=== PATIENT | male | born 1945 | race Caucasian/White ===

== ENCOUNTER → 2018-05-21 | Outpatient (REF) | payer MEDICARE, OTHER ==
[2018-05-21 09:28] LABS: HEMATOCRIT 44.3 % (39.0-50.0); HEMOGLOBIN 14.8 g/dl (14.0-18.0); IMMATURE GRANULOCYTES 0.7 % (0.0-5.0); MEAN CELL VOLUME 102.8 fL CALC (80.0-100.0); MEAN CORPUSCULAR HGB 34.3 pG CALC (26.0-32.0); MEAN CORPUSCULAR HGB CONC 33.4 g/L CALC (32.0-36.0); NEUT# 8.03 thou/uL (1.82-7.42); RED BLOOD COUNT 4.31 mill/uL (4.70-6.10)
[2018-05-21 10:45] LABS: ALBUMIN 3.9 g/dL (3.2-5.0); BILIRUBIN, TOTAL 2.2 mg/dL (0.0-1.4); CHOLESTEROL HDL RATIO 2.3 (<4.4 (CALC)); CREATININE 1.4 mg/dL (0.7-1.3); POTASSIUM 4.6 mmol/l (3.5-5.1)
== END | disposition home or self-care (01) ==
LOC: LAB 08:42
PROVIDERS: ATTEND Internal Medicine Geriatric Medicine
DX: I10 Essential (primary) hypertension (principal); E78.2 Mixed hyperlipidemia

== ENCOUNTER 2018-12-07 15:59 | Observation (INO) | payer MEDICARE, OTHER ==
[~2018-12-07] VITALS: Ht 175.3 cm; Wt 83.2 kg
[2018-12-07 16:51] LABS: HEMATOCRIT 44.7 % (39.0-50.0); HEMOGLOBIN 15.5 g/dl (14.0-18.0); IMMATURE GRANULOCYTES 1.2 % (0.0-5.0); MEAN CELL VOLUME 101.6 fL CALC (80.0-100.0); MEAN CORPUSCULAR HGB 35.2 pG CALC (26.0-32.0); MEAN CORPUSCULAR HGB CONC 34.7 g/L CALC (32.0-36.0); NEUT# 15.03 thou/uL (1.82-7.42); RED BLOOD COUNT 4.4 mill/uL (4.70-6.10); RED CELL DISTRI WIDTH 14.2 % (11.5-15.5)
[2018-12-07 16:58] VITALS: BP 174/78
[2018-12-07 17:07] LABS: CREATININE 1.6 mg/dL (0.7-1.3)
[2018-12-07 19:10] VITALS: BP 123/74
[2018-12-07 22:03] VITALS: BP 106/61
[2018-12-08 00:06] VITALS: BP 98/61
[2018-12-08 03:43] LABS: IMMATURE GRANULOCYTES 0.7 % (0.0-5.0); MEAN CELL VOLUME 101.4 fL CALC (80.0-100.0); MEAN CORPUSCULAR HGB 35.4 pG CALC (26.0-32.0); MEAN CORPUSCULAR HGB CONC 34.9 g/L CALC (32.0-36.0); NEUT# 8.78 thou/uL (1.82-7.42); RED BLOOD COUNT 3.45 mill/uL (4.70-6.10); RED CELL DISTRI WIDTH 14.1 % (11.5-15.5)
[2018-12-08 03:48] LABS: HEMOGLOBIN 12.2 g/dl (14.0-18.0)
[2018-12-08 03:59] LABS: ALKALINE PHOSPHATASE 88 u/l (38-126); ANION GAP 12 (6-22 (CALC)); BUN 11 mg/dL (8-23); BUN/CREATININE RATIO 9 (12-20 (CALC)); CALCULATED LDLCHOLESTEROL 29 mg/dL (62-129 (CALC)); CARBON DIOXIDE 31 mmol/l (22-30); CHLORIDE 94 mmol/l (95-108); CHOLESTEROL HDL RATIO 2.5 (<4.4 (CALC)); CREATININE 1.3 mg/dL (0.7-1.3); GFR 54 ML/MIN (>=60 (CALC)); GFR FOR AFR.AMER. > 60 ML/MIN (>=60 (CALC)); HDL CHOLESTEROL 28 mg/dL (>=40); POTASSIUM 3.7 mmol/l (3.5-5.1); SGOT/AST 14 u/l (19-48); SODIUM 133 mmol/l (137-146); TOTAL PROTEIN 5.9 g/dL (6.3-8.2); TOTAL TRIGLYCERIDES 67 mg/dl (30-149); VLDL CHOLESTROL 13 mg/dl (0-38 (CALC))
[2018-12-08 04:30] VITALS: BP 123/63; BP 23/63
[2018-12-08 04:54] LABS: ALBUMIN 2.8 g/dL (3.2-5.0); TOTAL CHOLESTEROL 70 mg/dl (0-199)
[2018-12-08 07:35] VITALS: BP 149/77
[2018-12-08 11:42] VITALS: BP 139/68
[2018-12-08 13:11] LABS: URINE BILIRUBIN - DIPSTICK NEGATIVE (NEGATIVE); URINE BLOOD DIPSTICK NEGATIVE (NEGATIVE); URINE CLARITY CLEAR; URINE COLOR YELLOW; URINE GLUCOSE - DIPSTICK NEGATIVE (NEGATIVE); URINE KETONE NEGATIVE (NEGATIVE); URINE LEUK ESTERASE NEGATIVE (Negative); URINE NITRITE - DIPSTICK NEGATIVE (Negative); URINE PROTEIN - DIPSTICK NEGATIVE (NEG-TRACE); URINE SPECIFIC GRAVITY <=1.005; URINE UROBILINOGEN - DIPSTICK 0.2 E.U./dL (0.2)
[2018-12-08] MEDS ORDERED: LIPITOR40 M1 PO (13:32)
[2018-12-08] MEDS ORDERED: ASPIRIN ADULT L81 MG PO (13:32)
[2018-12-08] MEDS ORDERED: SPIRONOLACT25 MG PO (13:33)
[2018-12-08] MEDS ORDERED: COREG12.5 MG PO (13:33)
[2018-12-08] MEDS ORDERED: VALSARTAN40 MG PO (13:34)
[2018-12-08 15:09] VITALS: BP 118/68
[2018-12-08 19:26] VITALS: BP 126/64
[2018-12-09 00:34] VITALS: BP 106/65
[2018-12-09 04:41] VITALS: BP 117/70
[2018-12-09 05:18] LABS: HEMATOCRIT 34.9 % (39.0-50.0); HEMOGLOBIN 12.1 g/dl (14.0-18.0); IMMATURE GRANULOCYTES 0.9 % (0.0-5.0); MEAN CELL VOLUME 102.3 fL CALC (80.0-100.0); MEAN CORPUSCULAR HGB 35.5 pG CALC (26.0-32.0); MEAN CORPUSCULAR HGB CONC 34.7 g/L CALC (32.0-36.0); NEUT# 7.57 thou/uL (1.82-7.42); RED BLOOD COUNT 3.41 mill/uL (4.70-6.10); RED CELL DISTRI WIDTH 14.1 % (11.5-15.5)
[2018-12-09 05:38] LABS: ANION GAP 12 (6-22 (CALC)); BUN 11 mg/dL (8-23); BUN/CREATININE RATIO 9 (12-20 (CALC)); CARBON DIOXIDE 29 mmol/l (22-30); CHLORIDE 97 mmol/l (95-108); CREATININE 1.2 mg/dL (0.7-1.3); GFR 59 ML/MIN (>=60 (CALC)); GFR FOR AFR.AMER. > 60 ML/MIN (>=60 (CALC)); POTASSIUM 4.1 mmol/l (3.5-5.1); SODIUM 134 mmol/l (137-146)
[2018-12-09 08:00] VITALS: BP 113/62
[2018-12-09 11:00] VITALS: BP 108/68
[2018-12-09 13:23] VITALS: BP 108/68
== END 2018-12-09 14:14 | disposition home or self-care (01) ==
LOC: MS2 15:59
PROVIDERS: ADMIT Internal Medicine Geriatric Medicine; ATTEND Internal Medicine Geriatric Medicine
DX: R07.89 Other chest pain (principal); R00.0 Tachycardia, unspecified; I11.0 Hypertensive heart disease with heart failure; I50.9 Heart failure, unspecified; I42.0 Dilated cardiomyopathy; J44.9 Chronic obstructive pulmonary disease, unspecified; I25.10 Atherosclerotic heart disease of native coronary artery without angina pectoris; L02.31 Cutaneous abscess of buttock; D53.9 Nutritional anemia, unspecified; F17.200 Nicotine dependence, unspecified, uncomplicated

== ENCOUNTER 2019-10-06 13:51 | Inpatient (IN) | payer MEDICARE, OTHER ==
[~2019-10-06] VITALS: Ht 172.7 cm; Wt 90.0 kg
[~2019-10-06 13:51] MED LIST: ASPIRIN ADULT L81 MG PO; COREG12.5 MG PO; LIPITOR40 M1 PO; SPIRONOLACT25 MG PO; VALSARTAN40 MG PO
--- NOTE | 2019-10-06 14:00 | NUR ---
PT TO ROOM VIA WC, OFFLOADING PRESSURE FROM LT BUTTOCLKS. PT STATES HE TAKES NO HOME MEDS AT THIS TIME.
[2019-10-06 14:56] LABS: GFR 59 ML/MIN (>=60 (CALC)); GFR FOR AFR.AMER. > 60 ML/MIN (>=60 (CALC))
[2019-10-06 14:58] LABS: HEMOGLOBIN 13.9 g/dl (14.0-18.0); IMMATURE GRANULOCYTES 0.5 % (0.0-5.0); MEAN CELL VOLUME 98.6 fL CALC (80.0-100.0); MEAN CORPUSCULAR HGB 32.4 pG CALC (26.0-32.0); MEAN CORPUSCULAR HGB CONC 32.9 g/dL CAL (32.0-36.0); NEUT# 12.98 thou/uL (1.82-7.42); RED BLOOD COUNT 4.29 mill/uL (4.70-6.10); RED CELL DISTRI WIDTH 13.2 % (11.5-15.5)
[2019-10-06 15:04] LABS: HEMATOCRIT 42.3 % (39.0-50.0)
[2019-10-06 15:16] LABS: ALKALINE PHOSPHATASE 94 u/l (38-126); ANION GAP 11 (6-22 (CALC)); BUN 16 mg/dL (8-23); BUN/CREATININE RATIO 15 (12-20 (CALC)); CARBON DIOXIDE 26 mmol/l (22-30); CHLORIDE 100 mmol/l (95-108); CREATININE 1.1 mg/dL (0.7-1.3); GFR > 60 ML/MIN (>=60 (CALC)); GFR FOR AFR.AMER. > 60 ML/MIN (>=60 (CALC)); POTASSIUM 3.5 mmol/l (3.5-5.1); SGOT/AST 15 u/l (19-48); SODIUM 133 mmol/l (137-146)
[2019-10-06 15:19] LABS: ALBUMIN 3.7 g/dL (3.2-5.0); TOTAL PROTEIN 7.5 g/dL (6.3-8.2)
--- NOTE | 2019-10-06 16:25 | NUR ---
PT RESTING SIDE LYING,URINAL GIVEN FOR COMFORT.
--- NOTE | 2019-10-06 17:04 | NUR ---
PLAN OF CARE UPDATED WITH PATIEN. RESPE EVEN,UNLABBORED
--- NOTE | 2019-10-06 18:12 | NUR ---
PT GIVEN DINNER TRAY. PT IN NAD
--- NOTE | 2019-10-06 18:58 | NUR ---
PATIENT RESTING AWAITING ROOM ASSIGNMENT PATIENT DENIES ANY PAIN AT THIS TIME
--- NOTE | 2019-10-06 19:30 | NUR ---
TELEPHONE REPORT RECEIVED Keren RODRIGUEZ RN, ROOM IS READY TO RECEIVE PATIENT.
--- NOTE | 2019-10-06 19:34 | NUR ---
REPORT CALLED TO DAY
--- NOTE | 2019-10-06 19:38 | NUR ---
WENT TO TRANSPORT PATIENT TO MED SURG AND PATIENT STATES TO BE QUITE THATB THERE IS CRABS AND SPIDERS CRAWLING OUT OF THE LINEN CABINET IN THE EXAM ROOM. NO SPIDERS OR CRABS NOTED WHEN LOOKING IN CABINET. DAY NOTIFIED IN MED SURG AND PATIENT REASSIGNED TO ROOM 260 REGISTRATION NOTIFIED AND PATIENT TRANSPORTED TO THE FLOOR
[2019-10-06 19:45] VITALS: BP 152/75
--- NOTE | 2019-10-06 19:48 | NUR ---
PT ARRIVES TO UNIT AT 1945 VIA STRETCHER, ACCOMPANIED BY Keren RODRIGUEZ RN. PT AMBULATORY TO BED. GAIT BALANCED AND STEADY. PT ORIENTED TO ROOM, CALL JC, AND BED/TV/ LIGHT CONTROLS. CALL JC WITHIN REACH. AGREES TO CALL PRN.
--- NOTE | 2019-10-06 20:15 | NUR ---
UPON ENTERING ROOM PT FOUND TO BE RESTING IN BED. LAYING ON HIS RIGHT SIDE. NO APPARENT DISTRESS. RESPIRATIONS ARE REGULAR AND UNLABORED. PHYSICAL ASSESMENT COMPLETE AT THIS TIME. PT REPORTS PAIN IS TOLERABLE IF HE DOES NOT LAY ON HIS BACK OR L GLUTEUS. L GLUTEUS IS ERYTHEMATOUS, EDEMATOUS, AND INDURATED. SKIN APPEARS INTACT AND W/O DRAINAGE AT THIS TIME. PICTURE DOCUMENTATION TAKEN AND POSTED ON CHART. SCHEDULED MED(S) ADMINISTERED, SEE E-MAR. PT DECLINES OFFER OF PRN APAP FOR PAIN, STATES " I DON'T WANT ANYTHING" PLAN OF CARE REVIEWED, PT DENIES QUESTIONS, VERBALIZES UNDERSTANDING. DENIES NEEDS AT THIS TIME. ITEMS WITHIN REACH, BED LOCKED IN LOW POSITION W/ BEDRAILS UP X2. CALL JC WITHIN REACH, AGREES TO CALL PRN.
--- NOTE | 2019-10-06 22:30 | NUR ---
UPON ENTERING ROOM PT APPEARS TO BE SLEEPING. APPEARS COMFORTABLE AND IN NO APPARENT DISTRESS. RESPIRATIONS ARE REGULAR AND UNLABORED. ITEMS REMAIN WITHIN REACH, BED REMAINS LOCKED IN LOW POSITION W/ BEDRAILS UP X2 AND CALL JC REMAINS WITHIN REACH.
[2019-10-06 23:30] VITALS: BP 133/64
[2019-10-07] VITALS (12 sets, daily range): BP systolic 118–155; BP diastolic 67–89
--- NOTE | 2019-10-07 05:57 | NUR ---
PT APPEARS TO BE RESTING COMFORTABLY IN BED. PHYSICAL ASSESMENT UNCHANGED FROM BEGINING OF SHIFT BASELINE. PT AFEBRILE, HEMODYNAMICS STABLE. DENIES NEEDS AT THIS TIME. ITEMS REMAIN WITHIN REACH. BED REMAINS LOCKED IN LOW POSITION W/ BEDRAILS UPX2. CALL JC REMAINS WITHIN REACH, AGREES TO CALL PRN.
--- NOTE | 2019-10-07 07:30 | NUR ---
RECIEVED REPORT FROM JOSE ANTONIO BERNSTEIN. PT RESTING IN SEMI FOWLERS POSITION UPON ENTERING ROOM. RESPIRATIONS ARE EVEN AND UNLABORED WITH NO SIGNS OF DISTRESS. PT DENIES ANY PAIN OR DISCOMFORTS AT THIS TIME. ALL SAFTEY PRECAUTIONS IN PLACE WITH CALL LIGHT IN REACH.WILL CONTINUE TO MONITOR
--- NOTE | 2019-10-07 07:30 | NUR ---
RECIEVED REPORT FROM JOSE ANTONIO BERNSTEIN. PT RESTING IN SEMI FOWLERS POSITION WATCHING TV UPON ENTERING ROOM. INTRODUCED SELF TO PT AND DISCUSSED POC. PT DENIES ANY PAIN OR DSICOMFORTS AT THIS TIME. ALL SAFETY PRECAUTIONS IN PLACE WITH CALL LIGHT IN REACH. WILL CONTINUE TO MONITOR
--- NOTE | 2019-10-07 08:36 | NUR ---
ASSESSMENT AND VITALS COMPLETED AT THIS TIME. PT IS A/O X3 AND ASSIST X1. BP 139/84, HR 100, O2 97% ON ROOM AIR. RESPIRATIONS ARE EVEN AND UNLABORED WITH NO SIGNS OF DISTRESS. LUNG SOUNDS ARE CLEAR. HEART RHYTHM IS NORMAL. BOWEL SOUNDS ARE ACTIVE IN ALL QUADRANTS, LAST REPORTED BM 10/07/19. RADIAL AND PEDAL PULSES ARE STRONG WITH NORMAL CAPILLARY REFILL. SKIN IS WARM AND DRY WITH NO EDEMA. PT PRESENTS WITH LEFT BUTTOCK ABCESS THAT APPEARS TO HAVE BUSTED WHEN GETTING ON BEDPAN. TOWEL APPLIED FOR PRESSURE, SCHEDULED I&D AT 0930.PT EDUCATED ON PROCEDURE, PT VERBALIZED UNDERSTANDING WITH NO QUESTIONS. CONSENT OBTAINED AT THIS TIME.#20G IN LH RUNNING WITH FLUIDS AT 100ML ORDERED, SITE APPEARS HEALTHY AND PATENT. PT DENIES ANY PAIN OR DISCOMFORTS AT THIS TIME. ALL SAFTEY PRECAUTIONS IN PLACE WITH CALL LIGHT IN REACH. WILL CONTINUE TO MONITOR
--- NOTE | 2019-10-07 11:19 | NUR ---
PT TRANSPORTED TO OR FOR I&D VIA STRETCHER IN STABLE CONDITION ACCOMPAINED BY OR STAFF.
--- NOTE | 2019-10-07 11:35 | NUR ---
S: DEDRICK BOLAÑOS is a 74 M who presents with gluteal abscess (cellulitis). He has a history of NE, CAD with stent placement, and hyperlipidemia. All medications in patient's chart were reviewed. O: VS: BP 139/84 mmHg, P 100 bpm, RR 18 BPM, T 98.7 F W 89.981 kg, HT 172.72 cm, SCr=1.2 mg/dL, CrCl= 57 ml/min A: Blood culture is pending. P: Patient is to start on Piperacillin/Tazobactam 3.375 gm IV Q6H. Vancomycin ordered for pharmacy to dose. Start Vancomycin 750 mg IV Q12H. Vancomycin trough is drawn before the 4th dose on 10/07 @ 2030. Vancomycin goal trough is between 10-15 mcg/ml. Pharmacy will follow and or advise on antibiotics use as needed.
--- NOTE | 2019-10-07 14:40 | NUR ---
PT ARRIVED TO [facility] ROOM 260 IN STABLE CONDITION VIA STRETCHER ACCOMPAINED BY OR STAFF. PT APPEARS TO BE A/OX3 BUT DROWSY. VITALS OBTAINED BP 132/74, HR 81, O2 97% ON ROOM AIR. RESPIRATIONS ARE EVEN AND UNLABORED WITH NO SIGNS OF DISTRESS. DRESSING IS SLIGHTLY MOIST, WOUND CARE CONSULTED. WILL REENFORCED DRESSING WHEN PT IS LESS DROWSY. PT DENIES ANY PAINS OR DSICOMFORTS AT THIS TIME. ALL SAFTEY PRECAUTION SIN PLACE WITH CALL LIGHT IN REACH. WILL CONTINUE TO MONITOR
--- NOTE | 2019-10-07 16:30 | NUR ---
PT SLEEPING IN SEMI FOWLERS POSITION WATCHING. RESPIRATIONS ARE EVEN AND UNLABORED WITH NO SIGNS OF DISTRESS. NO SIGNS OF ANY PAINS AT THIS TIME. ALL SAFETY PRECAUTIONS IN PLACE WITH CALL LIGHT IN REACH.
--- NOTE | 2019-10-07 19:00 | NUR ---
REPORT RECEIVED FROM Merly SLOAN LPN, CARE OF PATIENT ASSUMED AT THIS TIME.
--- NOTE | 2019-10-07 21:25 | NUR ---
UPON ENTERING ROOM PT APPEARS TO BE SLEEPING COMFORTABLY.LAYING SUPINE. NO APPARENT DISTRESS. RESPIRATIONS ARE REGULAR AND UNLABORED. WAKE EASILY. PHYSICAL ASSESMENT COMPLETE AT THIS TIME. DRESSING TO LEFT BUTTOCK IS CLEAN, DRY AND INTACT. PT DENIES PAIN. SCHEDULED MED(S) ADMINISTERED, SEE E-MAR. PLAN OF CARE REVIEWED, PT DENIES QUESTIONS, VERBALIZES UNDERSTANDING. DENIES NEEDS AT THIS TIME. ITEMS WITHIN REACH, BED LOCKED IN LOW POSITION W/ BEDRAILS UP X2. CALL JC WITHIN REACH, AGREES TO CALL PRN.
--- NOTE | 2019-10-07 22:00 | NUR ---
PT APPEARS TO BE SLEEPING COMFORTABLY, NO APPARENT DISTRESS. RESPIRATIONS REGULAR AND UNLABORED. PT LAYING SUPINE, HOB ELEVATED 30 DEGREES.
[2019-10-08 03:00] VITALS: BP 125/82
--- NOTE | 2019-10-08 05:52 | NUR ---
PT APPEARS TO BE SLEEPING COMFORTABLY IN BED. NO APPARENT DISTRESS. RESPIRATIONS REGULAR AND UNLABORED.PHYSICAL ASSESMENT UNCHANGED FROM BEGINING OF SHIFT BASELINE. PT AFEBRILE, HEMODYNAMICS STABLE. DENIES NEEDS AT THIS TIME. ITEMS REMAIN WITHIN REACH. BED REMAINS LOCKED IN LOW POSITION W/ BEDRAILS UPX2. CALL JC REMAINS WITHIN REACH, AGREES TO CALL PRN.
--- NOTE | 2019-10-08 08:30 | NUR ---
ASSESSMENT DONE. PT IS A&O X3. IVF INFUSUING WELL. PT STATED PAIN IN BUTTOCKS BUT REFUSED PAIN MEDICATION AT THIS TIME. DRESSING TO BUTTOCK IN PLACE WITH MODERATE RED DRAINAGE NOTED. PT DENIES ANY NEEDS AT THIS TIME. CALL LIGHT IN REACH.
[2019-10-08 09:08] VITALS: BP 138/74
--- NOTE | 2019-10-08 12:00 | NUR ---
PT IS EATING HIS LUNCH WITH NO S/S OF DISTRESS NOTED. PT DENIES PAIN MEDICATION AT THIS TIME. PT DENIES ANY NEEDS AT THIS TIME. CALL LIGHT IN REACH.
--- NOTE | 2019-10-08 13:55 | NUR ---
CHANGE PT DRESSING IN BUTTOCK MODERATE AMOUNT RED DRAINAGE NOTED. PT HAS PAIN BUT REFUSED PAIN MEDICATION AT THIS TIME. CALL LIGHT IN REACH.
--- NOTE | 2019-10-08 15:58 | NUR ---
PT IS RESTING ON HIS RIGHT SIDE WITH NO S/S OF DISTRESS NOTED. PT DENIES NEEDS AT THIS TIME CALL LIGHT IN REACH.
[2019-10-08 16:37] VITALS: BP 123/79
[2019-10-08 18:30] VITALS: BP 130/77
--- NOTE | 2019-10-08 19:00 | NUR ---
REPORT RECEIVED FROM Na SANCHEZ RN, CARE OF PT ASSUMED AT THIS TIME.
--- NOTE | 2019-10-08 21:30 | NUR ---
UPON ENTERING ROOM PT APPEARS TO BE SLEEPING COMFORTABLY. LAYING SUPINE. NO APPARENT DISTRESS. RESPIRATIONS ARE REGULAR AND UNLABORED. WAKE EASILY. PHYSICAL ASSESMENT COMPLETE AT THIS TIME. DRESSING TO LEFT BUTTOCK IS CLEAN, DRY AND INTACT. PT DENIES PAIN. SCHEDULED MED(S) ADMINISTERED, SEE E-MAR. PLAN OF CARE REVIEWED, PT DENIES QUESTIONS, VERBALIZES UNDERSTANDING. DENIES NEEDS AT THIS TIME. ITEMS WITHIN REACH, BED LOCKED IN LOW POSITION W/ BEDRAILS UP X2. CALL JC WITHIN REACH, AGREES TO CALL PRN.
[2019-10-09 04:00] VITALS: BP 148/81
[2019-10-09 04:35] LABS: HEMOGLOBIN 12.8 g/dl (14.0-18.0); MEAN CELL VOLUME 100.8 fL CALC (80.0-100.0); MEAN CORPUSCULAR HGB 33.1 pG CALC (26.0-32.0); MEAN CORPUSCULAR HGB CONC 32.8 g/dL CAL (32.0-36.0); RED BLOOD COUNT 3.87 mill/uL (4.70-6.10); RED CELL DISTRI WIDTH 13.1 % (11.5-15.5)
[2019-10-09 04:41] LABS: ANION GAP 7 (6-22 (CALC)); BUN 23 mg/dL (8-23); BUN/CREATININE RATIO 22 (12-20 (CALC)); CARBON DIOXIDE 26 mmol/l (22-30); CHLORIDE 107 mmol/l (95-108); GFR > 60 ML/MIN (>=60 (CALC)); GFR FOR AFR.AMER. > 60 ML/MIN (>=60 (CALC)); POTASSIUM 3.9 mmol/l (3.5-5.1); SODIUM 137 mmol/l (137-146)
[2019-10-09 07:21] VITALS: BP 147/78
--- NOTE | 2019-10-09 09:20 | NUR ---
ASSESSMENT DONE. PT IS A&O X3 BUT FORGETFUL AT TIMES. PT DENIES PAIN AT THIS TIME.DRESSING IN BUTTOCKS IN PLACE. LUNGS SOUND WHEEZE. PT DENIES ANY NEEDS AT THIS TIME. CALL LIGHT IN REACH.
[2019-10-09 10:49] VITALS: BP 135/76
--- NOTE | 2019-10-09 12:00 | NUR ---
PT IS EATING HIS LUNCH WITH NO S/S OF DISTRESS NOTED. PT DENIES NEEDS AT THIS TIME. CALL LIGHT IN REACH.
[2019-10-09] MEDS ORDERED: DOXYCYCL HYC100 MG PO (12:36)
--- NOTE | 2019-10-09 13:50 | NUR ---
JOSE ANTONIO MALIK CHANGE PT DRESSING IN BUTTOCKS.
--- NOTE | 2019-10-09 15:37 | NUR ---
Discharge instructions given. Patient verbalizes understanding of same. Discharged in stable condition via Wheelchair to Home with staff. All belongings sent with pt.
== END 2019-10-09 15:38 | disposition home health service (06) | DRG 603 ==
LOC: ED 13:51 → ED-I 17:13 → ED 17:39 → ED-I 17:40 → MS2 17:40
PROVIDERS: Family Medicine; ADMIT Internal Medicine; ATTEND Internal Medicine
PROC: 0H98XZZ Drainage of Buttock Skin, External Approach (ICD-10-PCS; principal; 2019-10-07)
DX: L02.31 Cutaneous abscess of buttock (principal); J42 Unspecified chronic bronchitis; R06.03 Acute respiratory distress; I10 Essential (primary) hypertension; I25.10 Atherosclerotic heart disease of native coronary artery without angina pectoris; E78.5 Hyperlipidemia, unspecified; F17.200 Nicotine dependence, unspecified, uncomplicated; I25.2 Old myocardial infarction; Z95.5 Presence of coronary angioplasty implant and graft; Z11.59 Encounter for screening for other viral diseases
CPT/HCPCS: C9290; G0378; J0131; J1650; J3370; Q9967

== ENCOUNTER 2020-02-11 10:19 | Inpatient (IN) | payer MEDICARE, OTHER ==
[~2020-02-11] VITALS: Ht 175.3 cm; Wt 91.3 kg
[~2020-02-11 10:19] MED LIST changes: +DOXYCYCL HYC100 MG PO
--- NOTE | 2020-02-11 10:22 | NUR ---
PATIENT TO ROOM VIA WHEELCHAIR AND PHYSICIAN NOTIFIED OF PATIENT STATUS
--- NOTE | 2020-02-11 11:30 | NUR ---
PATIENT RESTING AWAITING LAB AND RADIOLOGY RESULTS. VOICES NO PAIN AT THIS TIME
[2020-02-11 11:42] LABS: IMMATURE GRANULOCYTES 0.4 % (0.0-5.0); MEAN CORPUSCULAR HGB 30.6 pG CALC (26.0-32.0); MEAN CORPUSCULAR HGB CONC 32.4 g/dL CAL (32.0-36.0); NEUT# 7.31 thou/uL (1.82-7.42); RED BLOOD COUNT 5.33 mill/uL (4.70-6.10); RED CELL DISTRI WIDTH 13.1 % (11.5-15.5)
[2020-02-11 11:47] LABS: HEMATOCRIT 50.3 % (39.0-50.0); HEMOGLOBIN 16.3 g/dl (14.0-18.0); MEAN CELL VOLUME 94.4 fL CALC (80.0-100.0)
[2020-02-11 11:58] LABS: ALBUMIN 4.1 g/dL (3.2-5.0); ALKALINE PHOSPHATASE 109 u/l (38-126); ANION GAP 13 (6-22 (CALC)); BILIRUBIN, TOTAL 2.5 mg/dL (0.0-1.4); BUN 10 mg/dL (8-23); BUN/CREATININE RATIO 9 (12-20 (CALC)); C-REACTIVE PROTEIN 2.3 mg/dL (0-0.9); CARBON DIOXIDE 29 mmol/l (22-30); CHLORIDE 99 mmol/l (95-108); CREATININE 1.2 mg/dL (0.7-1.3); GFR 59 ML/MIN (>=60 (CALC)); GFR FOR AFR.AMER. > 60 ML/MIN (>=60 (CALC)); LIPASE 66 u/l (23-300); POTASSIUM 3.8 mmol/l (3.5-5.1); SGOT/AST 20 u/l (19-48); SODIUM 136 mmol/l (137-146)
[2020-02-11 12:03] LABS: D-DIMER 2.81 mg/L (0.19-0.60)
[2020-02-11 12:08] LABS: INTERNATIONAL NORMALIZED RATIO 1.1 RATIO (0.7-1.3); PROTHROMBIN TIME 10.6 SECONDS (9.0-12.5)
--- NOTE | 2020-02-11 12:30 | NUR ---
PATIENT RESTING AWAITNG LAB AND RADIOLOGY RESULTS. PATIENT VOICES NO PAIN OR CONCERNS AT THIS TIME
--- NOTE | 2020-02-11 13:30 | NUR ---
PATIENT RESTING WITH EYES CLOSED IN NO APPARENT DISTRESS AWAITNG RADIOLOGY RESULTS
--- NOTE | 2020-02-11 14:30 | NUR ---
PATIENT RESTING AWAITNG ROOM ASSIGNMENT
--- NOTE | 2020-02-11 15:19 | NUR ---
REPORT CALLED TO COURTNEY BRADY ON [facility]. PT IS CURRENTLY RESTING OXYGEN SATURATION 95 ON 2L OXYGEN. WILL BE TRANSFERRING THE PATIENT
--- NOTE | 2020-02-11 15:30 | NUR ---
PATIENT TO MED [facility] BY PRIMARY NURSE
[2020-02-11 15:35] VITALS: BP 156/87
--- NOTE | 2020-02-11 15:35 | NUR ---
PT ARRIVED TO [facility] ROOM 268 VIA WHEELCHAIR IN STABLE CONDITION. INTRODUCED SELF TO PT AND DISCUSSED POC. PT IS A/O X3. ASSESSMENT AND VITALS OBTAINED. BP 156/87, HR 94, O2 95% ON 2L NC. RESPIRATIONS ARE EVEN AND UNLABORED. HEART RHYTHM IS NORMAL WITH TELE IN PLACE SR 93 WITH PVCS. BOWEL SOUNDS ARE ACTIVE IN ALL QUADRANTS, LAST REPORTED BM 02/09/20. RADIAL AND PEDAL PULSES STRONG. #20G IN LAC FLUSHED, SITE APPEARS HEALTHY AND PATENT. PT PRESENTS WITH WOUND ON LEFT BUTTOCKS THAT HOME HEALTH DRESSES TWICE A WEEK. PT STATES HE HAD AN ABCESS AND FIORUCCI I&D BACK IN SEPTEMBER. PHOTOS BTO BE OBTAINED.PT INFORMS WRITTER THAT HE HAS INCREASE OF SOB THE PAST COUPLE DAYS. PT DENIES ANY ALLERGIES, ALLERGY BAND APPLIED. PT DENIES ANY PAIN OR DISCOMFORTS AT THIS TIME. PT ORIENTED TO ROOM AND CALL LIGHT SYSTEM. ALL SAFTEY PRECAUTIONS ARE IN PLACE WITH CALL LIGHT IN REACH. WILL CONTINUE TO MONITOR.
[2020-02-11 15:37] VITALS: BP 156/87
--- NOTE | 2020-02-11 17:02 | NUR ---
DR MATOS CALLED TO ENSURE DRESSING COULD BE REMOVED. ORDERS TO REMOVE DRESSING TO DOCUMENT WOUND.
--- NOTE | 2020-02-11 17:58 | NUR ---
PHOTOS OBTAINED OF WOUND ON LEFT BUTTOCKS.PT STATES "I HAVE SOME SILVER STUFF IN THERE TOO, IT HELPS OBSORB." OLD QUUACELL REMOVED. NOTHING PULLED OUT OF WOUND. GUAZE AND TEGADER APPLIED. PT TOLERATED WELL.
--- NOTE | 2020-02-11 18:36 | NUR ---
ORDERS TO OBTAINED PCR FOR COVID 19. PT TO REMAIN IN CURRENT ROOM PER DOCTORS ORDERS.
--- NOTE | 2020-02-11 18:46 | NUR ---
SWABB OBATINED PT TOELRATED WELL
[2020-02-11 19:30] VITALS: BP 143/82
--- NOTE | 2020-02-11 20:02 | NUR ---
PHYSICAL ASSESMENT COMPLETE. PT CURRENTLY DENIES PAIN OR DISCOMFORT. SCHEDULED MEDICATIONS AND PRN MEDICATION ADMINISTERED, SEE E-MAR. PT DENIES ANY NEEDS AT THIS TIME. PLAN OF CARE REVIEWED, PT DENIES QUESTIONS, VERBALIZES UNDERSTANDING. ITEMS WITHIN REACH, BED LOCKED IN LOW POSITION W/ BEDRAILS UP X2. CALL JC WITHIN REACH, AGREES TO CALL PRN.
--- NOTE | 2020-02-12 00:02 | NUR ---
PT LAYING IN BED WITH EYES CLOSED, APPEARS TO BE SLEEPING, APPEARS COMFORTABLE AND IN NO DISTRESS. RESPIRATIONS REGULAR AND UNLABORED. ITEMS REMAIN WITHIN REACH, CALL JC REMAINS WITHIN REACH. BED REMAINS LOCKED AND IN LOW POSITION WITH BEDRAILS UP X2. WILL CONTINUE TO MONITOR.
[2020-02-12 00:05] VITALS: BP 152/96
--- NOTE | 2020-02-12 04:02 | NUR ---
PT RESTING IN BED, NO SIGNS OF DISTRESS NOTED, RESP EVEN AND UNLABORED. PT VOICES NO NEEDS OR COMPLAINTS AT THIS TIME. CALL LIGHT IN REACH, WILL CONTINUE TO MONITOR.
[2020-02-12 04:10] VITALS: BP 122/74
[2020-02-12 04:50] LABS: HEMATOCRIT 45.4 % (39.0-50.0); IMMATURE GRANULOCYTES 0.3 % (0.0-5.0); MEAN CELL VOLUME 94.6 fL CALC (80.0-100.0); MEAN CORPUSCULAR HGB 31.3 pG CALC (26.0-32.0); NEUT# 6.56 thou/uL (1.82-7.42); RED BLOOD COUNT 4.8 mill/uL (4.70-6.10); RED CELL DISTRI WIDTH 12.8 % (11.5-15.5)
[2020-02-12 05:12] LABS: ALBUMIN 3.5 g/dL (3.2-5.0); ALKALINE PHOSPHATASE 85 u/l (38-126); ANION GAP 10 (6-22 (CALC)); BUN 16 mg/dL (8-23); BUN/CREATININE RATIO 15 (12-20 (CALC)); CARBON DIOXIDE 29 mmol/l (22-30); CHLORIDE 103 mmol/l (95-108); CREATININE 1.1 mg/dL (0.7-1.3); GFR > 60 ML/MIN (>=60 (CALC)); GFR FOR AFR.AMER. > 60 ML/MIN (>=60 (CALC)); POTASSIUM 4.5 mmol/l (3.5-5.1); SGOT/AST 16 u/l (19-48); SODIUM 137 mmol/l (137-146)
[2020-02-12 05:14] LABS: BILIRUBIN, TOTAL 1.4 mg/dL (0.0-1.4)
[2020-02-12 07:38] VITALS: BP 134/86
--- NOTE | 2020-02-12 08:00 | NUR ---
RECIEVED REPORT FROM JOSE ANTONIO TSE. PT RESTING IN SEMI FOWLERS POSITION UPON ENTERING ROOM. INTRODUCED SELF TO PT AND DISCUSSED POC. PT IS A/O X3. ASSESSMENT AND VITALS OBTAINED. RESPIRATIONS ARE EVEN AND UNLABORED ON 2L NC. PT DENIES HAVING OXYGEN AT HOME. HEART RHYTHM NORMAL WITH TELE IN PLACE, SR 79. BOWEL SOUNDS ARE ACTIVE IN ALL QUADRANTS, LAST REPORTED BM 02/09/2020. PT REFUSES ANYTHING TO ASSIST. RADIAL AND PEDAL PULSES ARE STRONG WITH NORMAL CAPILLARY REFILL. #20G IN LAC FLUSHED, SITE APPEARS HEALTHY AND PATENT. PT PRESENTS WITH WOUND ON LEFT BUTTOCK, DRESSING CDI AT THSI TIME.NO DRESSING ORDERS AT THSI TIME.PT DENIES OF ANY PAIN OR DISCOMFORTS AT THIS TIME. ALL SAFETY PRECAUTIONS ARE IN PLACE WITH CALL LIGHT IN REACH. WILL CONTINUE TO MONITOR.
--- NOTE | 2020-02-12 10:25 | NUR ---
DR BOWDEN AND JORG EL TINOCO AT BEDSIDE DISCUSSING POC WITH PT
[2020-02-12 12:02] VITALS: BP 123/76
--- NOTE | 2020-02-12 12:40 | NUR ---
PT SLEEPING IN LOW FOWLERS POSITION. RESPIRATIONS ARE EVEN AND UNLABORED ON 2L NC. NO SIGNS OF ANY PAIN OR DISCOMFORTS.TELE MONITORING IN PLACE. ALL SAFETY PRECAUTIONS ARE IN PLACE WITH CALL LIGHT IN REACH. WILL CONTINUE TO MONITOR
[2020-02-12] MEDS ORDERED: ADULT ASPIRIN R81 MG PO (14:56)
[2020-02-12 16:08] VITALS: BP 125/78
--- NOTE | 2020-02-12 16:08 | NUR ---
PT SLEEPING IN SEMI FOWLERS POSITION. RESPIRATIONS ARE EVEN AND UNLABORED ON 2L NC. TELE MONITORING IN PLACE, SR 72. NO SIGNS OF ANY PAIN OR DISCOMFORTS AT THIS TIME.ALL SAFETY PRECAUTIONS ARE IN PLACE WITH CALL LIGHT IN REACH. WILL CONTINUE TO MONITOR
[2020-02-12 19:10] VITALS: BP 131/79
--- NOTE | 2020-02-12 20:30 | NUR ---
PT PRESENTS WITH WOUND ON LEFT BUTTOCK, IRRIGATED WOUND WITH NORMAL SALINE AND REPLACED DRESSING WITH NON-ADHERENT PAD AND TEGADERM COVER. INITIALED AND DATED. DRESSING CDI AT THSI TIME.
[2020-02-13 00:42] VITALS: BP 136/85
[2020-02-13 03:45] VITALS: BP 151/82
--- NOTE | 2020-02-13 04:05 | NUR ---
PT RESTING IN BED, NO SIGNS OF DISTRESS NOTED, RESP EVEN AND UNLABORED. PT VOICES NO NEEDS OR COMPLAINTS AT THIS TIME. CALL LIGHT IN REACH,CONTINUE TO MONITOR.
[2020-02-13 07:43] VITALS: BP 135/86
--- NOTE | 2020-02-13 07:43 | NUR ---
RECIEVED REPORT FROM JOSE ANTONIO TSE. PT RESTNG IN SEMI FOWLERS POSITION UPON ENTERING ROOM. INTRODUCED SELF TO PT AND DISCUSSED POC. PT IS A/O X3. WRITTER ASSISTED PT UP TO CHAIR FOR BREAKFAST. ASSESSMENT AND VITALS COMPLETED. RESPIRATIONS ARE EVEN AND UNLABORED ON ROOM AIR SATING 96%.2L NC AT BEDSIDE PRN. HEART RHYTHM IS NORMAL WITH TELE IN PLACE, SR 77. BOWEL SOUNDS ARE ACTIVE IN ALL QUADRANTS, ALST REPORTED BM 02/09/20. PT REFUSES ANY THING TO HELP ASSIST. #20G IN LAC FLUSHED, SITE APPEARS HEALTHY AND PATENT. RADIAL PULSES STRONG. PEDAL PULSES WEAK. PT DENIES ANY PAIN AT THIS TIME. ALL SAFETY PECAUTIONS ARE IN PLACE WITH CALL LIGHT IN REACH. WILL CONTINUE TO MONITOR
--- NOTE | 2020-02-13 10:31 | NUR ---
DR BOWDEN AT BEDSIDE DISCUSSING POC.
[2020-02-13 11:06] VITALS: BP 123/75
--- NOTE | 2020-02-13 12:46 | NUR ---
PT RESTING IN SEMI FOWLERS POSITION . RESPIRATIONS ARE EVEN AND UNLABORED WITH NO DISTERSS NOTED ON ROOM AIR. PT REQUEST FOR SOMETHING ELSE TO DRINK BESIDE TEA. COLA PROVIDED. PT DENIES ANY PAIN AT THIS TIME. ALL SAFETY PRECAUTIONS ARE IN PLACE WIHT CALL LIGHT INREACH. WILL CONTINUE TO MONITOR
--- NOTE | 2020-02-13 14:36 | NUR ---
ATTEMPTED TO COMPLETE WALK TEST. PT WALKED TO DOOR WITH WRITTER AND PT STATED " IM NOT GOING TO BE ABLE TO MKAE IT." WRITTER ASSISTED PT BACK INTO BED. MD TO BE NOTIFIED.
--- NOTE | 2020-02-13 15:30 | NUR ---
DRESSING CHANGE TO LEFT BUTTOCKS. PT TOELRATED WELL. RESPIRATIONS REMAINS EVEN AND UNLABORED WITH NO SIGNS FO DISTRESS NEED. PT DENIES ANY PAINS OR NEEDS AT THIS TIME. ALL SAFTEY PRECAUTIONS ARE IN PLACE WIHT CALL LIGHT IN REACH. WILL CONTINUE TO MONITOR
[2020-02-13 16:00] VITALS: BP 141/89
[2020-02-13 20:00] VITALS: BP 134/76
--- NOTE | 2020-02-13 20:03 | NUR ---
PHYSICAL ASSESMENT COMPLETE. PT CURRENTLY DENIES PAIN OR DISCOMFORT. SCHEDULED MEDICATIONS AND PRN MEDICATION ADMINISTERED, SEE E-MAR. PT ON 2 LITERS OF 02. PT DENIES ANY NEEDS AT THIS TIME. PLAN OF CARE REVIEWED, PT DENIES QUESTIONS, VERBALIZES UNDERSTANDING. ITEMS WITHIN REACH, BED LOCKED IN LOW POSITION W/ BEDRAILS UP X2. CALL JC WITHIN REACH, AGREES TO CALL PRN.
[2020-02-14] VITALS: BP 139/80
[2020-02-14 04:00] VITALS: BP 144/89
[2020-02-14 05:53] LABS: HEMATOCRIT 44.2 % (39.0-50.0); HEMOGLOBIN 14.3 g/dl (14.0-18.0); IMMATURE GRANULOCYTES 0.5 % (0.0-5.0); MEAN CELL VOLUME 96.5 fL CALC (80.0-100.0); MEAN CORPUSCULAR HGB 31.2 pG CALC (26.0-32.0); MEAN CORPUSCULAR HGB CONC 32.4 g/dL CAL (32.0-36.0); NEUT# 11.75 thou/uL (1.82-7.42); RED BLOOD COUNT 4.58 mill/uL (4.70-6.10); RED CELL DISTRI WIDTH 13.1 % (11.5-15.5)
[2020-02-14 06:14] LABS: ALBUMIN 3.4 g/dL (3.2-5.0); ALKALINE PHOSPHATASE 68 u/l (38-126); ANION GAP 12 (6-22 (CALC)); CARBON DIOXIDE 27 mmol/l (22-30); CHLORIDE 103 mmol/l (95-108); CREATININE 1.1 mg/dL (0.7-1.3); GFR > 60 ML/MIN (>=60 (CALC)); GFR FOR AFR.AMER. > 60 ML/MIN (>=60 (CALC)); POTASSIUM 4.6 mmol/l (3.5-5.1); SGOT/AST 20 u/l (19-48); SODIUM 136 mmol/l (137-146); TOTAL PROTEIN 6.7 g/dL (6.3-8.2)
[2020-02-14 06:24] LABS: BILIRUBIN, TOTAL 0.5 mg/dL (0.0-1.4); BUN 38 mg/dL (8-23); BUN/CREATININE RATIO 35 (12-20 (CALC))
--- NOTE | 2020-02-14 07:09 | NUR ---
PT note Patient is screened for PT intervention and would benefit from consult if medical agrees
[2020-02-14 07:55] VITALS: BP 156/90
--- NOTE | 2020-02-14 07:55 | NUR ---
PATIENT SITTING AT SIDE OF BED. DENIES ANY NEEDS AT THIS TIME CALL LIGHT NEAR. PATIENT O2 ON AT THIS TIME AT 2 LITERS. DRESSING ON BUTTOCKS DRY AND INTACT. ALL SAFETY MEASURES ARE IN PLACE.
--- NOTE | 2020-02-14 08:16 | NUR ---
AT BEDSIDE DISCUSSING POC.
--- NOTE | 2020-02-14 09:01 | NUR ---
CALLED WOUND CARE AND SPOKE TO TOMMY MOSS MADE SURE THE FAX WENT THREW FOR FRIDAY. SHE CONFIRMED THAT SHE RECEIVED THE EMAIL REGARDING THIS PT.
--- NOTE | 2020-02-14 09:56 | NUR ---
WOUND CARE AT BEDSIDE
[2020-02-14] MEDS ORDERED: PREDNISONE10 MG PO (10:46)
[2020-02-14] MEDS ORDERED: Levaquin PO (10:46)
[2020-02-14] MEDS ORDERED: PROAIR HFA IN (10:47)
[2020-02-14] MEDS ORDERED: AMOX/K CLAV875 M1 PO (10:48)
[2020-02-14 10:50] VITALS: BP 134/85
--- NOTE | 2020-02-14 12:25 | NUR ---
PATIENT IN BED DENIES ANY NEEDS AT THIS TIME O2 REMAINS ON AT 2 LITERS. ALL SAFETY MEASURES ARE IN PLACE.
--- NOTE | 2020-02-14 14:20 | NUR ---
PATIENT ASKED IF HE WOULD LIKE TO HAVE SOMETHING TO HELP WITH HIS LACK OF BOWEL MOVEMENT AND PATIENT STATED "NO" PATIENT STATED "I TYPICALLY ON GO EVERY 3-4 DAYS AND I AM NOT UNCOMFORTABLE AT THIS TIME. PATIENT ADVISED TO JUST LET NURSE KNOW IF HE NEEDS ANYTHING.
[2020-02-14 15:10] VITALS: BP 139/81
--- NOTE | 2020-02-14 16:11 | NUR ---
PATIENT IN BED AT THIS TIME CALL LIGHT NEAR 02 ON AT 2 LITERS, DENIES ANY NEEDS AT THIS TIME CALL LIGHT NEAR AND SIDERAILS UPX2.
--- NOTE | 2020-02-14 17:55 | NUR ---
PATIENT D/C AT THIS TIME PATIENT VERBALIZES UNDERSTANDING OF D/C AND WAS GIVEN 3 PRESCRIPTIONS AT THIS TIME.
--- NOTE | 2020-02-14 18:40 | NUR ---
Discharge instructions given. Patient verbalizes understanding of same. Discharged in stable condition via Wheelchair to Home with family. All belongings sent with pt. PT TRANSPORTED TO [facility] IN STABLE CONDITION FOR D/C HOME;ALL BELONGINGS LEFT AT THIS TIME WITH PT INCLUDING HOME OXYGEN, PT INSTRUCTED TO CALL [facility] ONCE HOME AND NUMBER PROVIDED;BROTHER TO TRANSPORT PT HOME.
== END 2020-02-14 18:34 | disposition home health service (06) | DRG 194 ==
LOC: ED 10:19 → ED-I 10:39 → ED 10:39 → ED-I 13:34 → ED 13:53 → MS2 13:54
PROVIDERS: Nurse Practitioner Family; ADMIT Internal Medicine; ATTEND Internal Medicine
DX: J18.9 Pneumonia, unspecified organism (principal); J44.1 Chronic obstructive pulmonary disease with (acute) exacerbation; J91.8 Pleural effusion in other conditions classified elsewhere; L02.31 Cutaneous abscess of buttock; I25.10 Atherosclerotic heart disease of native coronary artery without angina pectoris; I10 Essential (primary) hypertension; E78.5 Hyperlipidemia, unspecified; F17.210 Nicotine dependence, cigarettes, uncomplicated; Z79.899 Other long term (current) drug therapy; Z95.5 Presence of coronary angioplasty implant and graft; I25.2 Old myocardial infarction
CPT/HCPCS: J1650; Q9967

== ENCOUNTER 2021-10-08 13:45 | Emergency (ER) | payer MEDICARE, OTHER ==
[~2021-10-08] VITALS: Ht 174 cm; Wt 84.0 kg
[~2021-10-08 13:45] MED LIST changes: +ADULT ASPIRIN R81 MG PO; +AMOX/K CLAV875 M1 PO; +ATORVASTATIN CA40 MG PO; +COREG6.25 MG PO; +LASIX20 MG PO; +Levaquin PO; +PREDNISONE10 MG PO; +PROAIR HFA IN
[2021-10-08 14:35] LABS: HEMATOCRIT 40.4 % (39.0-50.0); HEMOGLOBIN 13.4 g/dl (14.0-18.0); IMMATURE GRANULOCYTES 0.2 % (0.0-5.0); MEAN CELL VOLUME 95.5 fL CALC (80.0-100.0); MEAN CORPUSCULAR HGB 31.7 pG CALC (26.0-32.0); MEAN CORPUSCULAR HGB CONC 33.2 g/dL CAL (32.0-36.0); NEUT# 6.7 thou/uL (1.82-7.42); RED BLOOD COUNT 4.23 mill/uL (4.70-6.10); RED CELL DISTRI WIDTH 13.4 % (11.5-15.5)
[2021-10-08 14:55] LABS: ALBUMIN 3.2 g/dL (3.2-5.0); CREATININE 1.6 mg/dL (0.7-1.3); TOTAL PROTEIN 6.3 g/dL (6.3-8.2)
[2021-10-08 14:57] LABS: BILIRUBIN, TOTAL 0.9 mg/dL (0.0-1.4)
[2021-10-08 17:30] LABS: URINE BLOOD DIPSTICK NEGATIVE (NEGATIVE); URINE COLOR YELLOW; URINE GLUCOSE - DIPSTICK NEGATIVE (NEGATIVE); URINE KETONE TRACE mg/dL (NEGATIVE); URINE LEUK ESTERASE NEGATIVE (NEGATIVE); URINE PROTEIN - DIPSTICK TRACE mg/dL (NEG-TRACE); URINE SPECIFIC GRAVITY 1.025; URINE UROBILINOGEN - DIPSTICK 0.2 E.U./dL (0.2)
[2021-10-08 17:33] LABS: URINE BILIRUBIN - DIPSTICK SMALL (NEGATIVE); URINE NITRITE - DIPSTICK NEGATIVE (Negative)
[2021-10-08 18:30] VITALS: BP 123/68
== END 2021-10-08 19:01 | disposition home or self-care (01) ==
LOC: ED 13:45
PROVIDERS: Nurse Practitioner
DX: Z04.89 Encounter for examination and observation for other specified reasons (principal); F17.200 Nicotine dependence, unspecified, uncomplicated; Z95.5 Presence of coronary angioplasty implant and graft; Z63.4 Disappearance and death of family member; Z60.2 Problems related to living alone

== ENCOUNTER 2022-09-09 22:21 | Inpatient (IN) | payer MEDICARE ==
[~2022-09-09] VITALS: Ht 175.3 cm; Wt 79.0 kg
[2022-09-09 22:45] VITALS: BP 134/64
--- NOTE | 2022-09-09 22:45 | NUR ---
PT ARRIVES VIA EMS STRETCHER WITH C/O SHORTNESS OF BREATH. PT REPORTS DIARRHEA AND SHORTNESS OF BREATH THAT STARTED TODAY. PT APPEARS PALE IN COLOR, 02 AT 2L VIA NC. EMS REPORTS THAT UPON ARRIVAL, PT WAS FOUND SITTING ON THE TOILET, WITH BROWN DIARRHEA NOTED IN THE BOWL. PT GIVEN NEB TX X 1 AND DECADRON 10MG IVP PRIOR TO ARRIVAL. MD IMMEDIATELY AT BEDSIDE TO EVALUATE PT.
--- NOTE | 2022-09-09 22:47 | NUR ---
RT AT BEDSIDE FOR ABG
[2022-09-09 23:15] VITALS: BP 141/63
[2022-09-09 23:17] LABS: BASO% 0.1 % (0-3); EOS% 0.5 % (0-8); HEMATOCRIT 35.2 % (39.0-50.0); HEMOGLOBIN 11.8 g/dl (14.0-18.0); IMMATURE GRANULOCYTES 0.5 % (0.0-5.0); LYMPH% 10.3 % (15-41); MEAN CELL VOLUME 92.9 fL CALC (80.0-100.0); MEAN CORPUSCULAR HGB 31.1 pG CALC (26.0-32.0); MEAN CORPUSCULAR HGB CONC 33.5 g/dL CAL (32.0-36.0); MONO% 4.1 % (2-13); NEUT# 6.72 thou/uL (1.82-7.42); NEUT% 84.5 % (42-76); RED BLOOD COUNT 3.79 mill/uL (4.70-6.10); RED CELL DISTRI WIDTH 13.2 % (11.5-15.5)
[2022-09-09 23:30] VITALS: BP 152/62
[2022-09-09 23:35] LABS: ALKALINE PHOSPHATASE 119 u/l (38-126); CHLORIDE 106 mmol/l (95-108); CREATININE 1.7 mg/dL (0.7-1.3); GFR FOR AFR.AMER. 47 ML/MIN (>=60 (CALC)); GFR OTHER RACES 39 ML/MIN (>=60 (CALC)); SGOT/AST 27 u/l (19-48); SODIUM 136 mmol/l (137-146); TOTAL PROTEIN 6.5 g/dL (6.3-8.2)
--- NOTE | 2022-09-09 23:41 | NUR ---
PT RESTING QUIETLY IN BED, MONITOR SHOWS A PACED RHYTHM, NO COUGHING NOTED AT THIS TIME. 02 99% ON 2L VIA NC
[2022-09-09 23:43] LABS: ANION GAP 16 (6-22 (CALC)); BILIRUBIN, TOTAL 3.5 mg/dL (0.2-1.3); BUN 53 mg/dL (8-23); BUN/CREATININE RATIO 31 (12-20 (CALC)); CARBON DIOXIDE 17 mmol/l (22-30); POTASSIUM 2.9 mmol/l (3.5-5.1)
[2022-09-09 23:45] VITALS: BP 131/67
[2022-09-10] VITALS (16 sets, daily range): BP systolic 135–178; BP diastolic 62–85
--- NOTE | 2022-09-10 02:40 | NUR ---
PATIENT ARRIVED TO [facility] ROOM 271. PATIENT IS ON OXYGEN 2L NC WITH LABORED BREATHING AND COMPLAINING OF DISCOMFORT TO HIS BUTTOCKS. 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 PATIENT ALSO HAS MULTIPLE SCATTERED BRUISES AND A RIGHT KNEE ABRASION, PHOTOS TAKEN. PATIENT IS ALERT TO SELF AND PLACE BUT NOT ANYTHING ELSE. WHEN ASKED WHERE HE LIVES HE STATED "[facility] [place] [facility] [place] [employer] [facility] [place] PATIENT STATED SMOKING AT LEAST 2 PACKS A DAY WITH OXYGEN USAGE AT THE SAME TIME RANGING FROM 2-4L NC. PATIENT EDUCATED ON DANAGER OF USING OXYGEN WHILE SMOKING. ONLY BELONGING IN ROOM ARE CLOTHING.
--- NOTE | 2022-09-10 06:12 | NUR ---
PATIENT RESTING ABLE TO SELF TURN. PATIENT IS MORE ALERT BUT FORGETFUL. CALL LIGHT WITHIN REACH.
--- NOTE | 2022-09-10 19:46 | NUR ---
BEDSIDE REPORT RECEIVED FROM OFF GOING NURSE. PATIENT ASLEEP IN BED. RESPIRATIONS EVEN AND UNLABORED ON OXYGEN VIA NASAL CANNULA. CALL LIGHT WITHIN REACH.
--- NOTE | 2022-09-10 23:13 | NUR ---
PATIENT AWAKE IN BED AT THIS TIME RECEIVING NEBULIZER TREATMENT. DENIES PAIN OR DISCOMFORT. CALL LIGHT WITHIN REACH.
--- NOTE | 2022-09-11 02:07 | NUR ---
PATIENT ASLEEP IN BED. RESPIRATIONS EVEN AND UNLABORED ON ROOM AIR. IN NO APPARENT DISTRESS.
[2022-09-11 04:50] VITALS: BP 142/60
--- NOTE | 2022-09-11 04:55 | NUR ---
PATIENT AWAKE IN BED. DENIES PAIN OR DISCOMFORT. CALL LIGHT WITHIN REACH.
[2022-09-11 05:13] LABS: BASO% 0.1 % (0-3); HEMATOCRIT 32.9 % (39.0-50.0); HEMOGLOBIN 11.2 g/dl (14.0-18.0); IMMATURE GRANULOCYTES 0.3 % (0.0-5.0); LYMPH% 7.8 % (15-41); MEAN CELL VOLUME 92.2 fL CALC (80.0-100.0); MEAN CORPUSCULAR HGB 31.4 pG CALC (26.0-32.0); MONO% 1.2 % (2-13); NEUT# 6.61 thou/uL (1.82-7.42); NEUT% 90.6 % (42-76); RED BLOOD COUNT 3.57 mill/uL (4.70-6.10); RED CELL DISTRI WIDTH 13.5 % (11.5-15.5)
[2022-09-11 05:32] LABS: BILIRUBIN, TOTAL 2.1 mg/dL (0.2-1.3); CREATININE 1.6 mg/dL (0.7-1.3); MAGNESIUM 1.1 mg/dL (1.6-2.3); POTASSIUM 3.5 mmol/l (3.5-5.1); TOTAL PROTEIN 6.3 g/dL (6.3-8.2)
[2022-09-11 06:39] VITALS: BP 135/70
--- NOTE | 2022-09-11 06:41 | NUR ---
PATIENT ASLEEP IN BED. RESPIRATIONS EVEN AND UNLABORED ON ROOM AIR. NO CONCERNS VOICED AT THIS TIME.
--- NOTE | 2022-09-11 07:00 | NUR ---
BEDSIDE REPORT RECEIVED FROM OFF GOING NURSE. PATIENT AWAKE AND RESTING IN BED. NO CONCERNS VOICED AT THIS TIME. CALL LIGHT WITHIN REACH. ALL SAFETY MEASURES IN PLACE. VSS
--- NOTE | 2022-09-11 10:27 | NUR ---
PT REMOVED HIS IV CATHETER. SAYS RN CAN PUT A NEW ONE IN "LATER". PT EDUCATED BUT ADAMANT. RN WILL REATTEMPT SHORTLY.
[2022-09-11 12:00] VITALS: BP 135/57
[2022-09-11 16:34] VITALS: BP 144/65
[2022-09-11 19:17] VITALS: BP 143/71
--- NOTE | 2022-09-11 23:23 | NUR ---
PATIENT'S SISTER SHAWNA CALLED EARLY IN SHIFT TO RECEIVE UPDATE ON PATIENT. THIS ANCILLARY SERVICES MANAGER THERAPY UNABLE TO SPEAK WITH SISTER AT LENGTH AT THAT TIME AND AGREED TO RETURN THE CALL. PATIENT MADE AWARE OF HIS SISTER'S PHONE CALL AND AGREEABLE THAT SHE IS ALLOWED TO RECEIVE INFORMATION ON THIS PATIENT. UPON RETURN CALL TO PATIENT'S SISTER, THERE WAS NO ANNSWER. MESSAGE LEFT. PATIENT MADE AWARE.
[2022-09-12] VITALS (9 sets, daily range): BP systolic 109–149; BP diastolic 64–83
--- NOTE | 2022-09-12 04:57 | NUR ---
PATIENT AWAKE IN BED. DENIES PAIN OR DISCOMFORT. RESPIRATIONS SHALLOW AT TIMES. PATIENT EDUCATED ON BREATHING TECHNIQUES AND ABLE TO RETURN DEMONSTRATION. CALL LIGHT DESHAWN TERRY.
[2022-09-12 05:48] LABS: HEMATOCRIT 31.1 % (39.0-50.0); HEMOGLOBIN 10.4 g/dl (14.0-18.0); IMMATURE GRANULOCYTES 0.4 % (0.0-5.0); MEAN CELL VOLUME 91.2 fL CALC (80.0-100.0); MEAN CORPUSCULAR HGB 30.5 pG CALC (26.0-32.0); MEAN CORPUSCULAR HGB CONC 33.4 g/dL CAL (32.0-36.0); MONO% 3.6 % (2-13); NEUT# 6.64 thou/uL (1.82-7.42); RED BLOOD COUNT 3.41 mill/uL (4.70-6.10); RED CELL DISTRI WIDTH 13.4 % (11.5-15.5)
[2022-09-12 06:05] LABS: ALBUMIN 2.7 g/dL (3.2-5.0); ALKALINE PHOSPHATASE 96 u/l (38-126); ANION GAP 13 (6-22 (CALC)); BILIRUBIN, TOTAL 2.2 mg/dL (0.2-1.3); BUN 47 mg/dL (8-23); BUN/CREATININE RATIO 39 (12-20 (CALC)); CARBON DIOXIDE 17 mmol/l (22-30); CHLORIDE 108 mmol/l (95-108); CREATININE 1.2 mg/dL (0.7-1.3); GFR FOR AFR.AMER. > 60 ML/MIN (>=60 (CALC)); GFR OTHER RACES 58 ML/MIN (>=60 (CALC)); MAGNESIUM 1.2 mg/dL (1.6-2.3); POTASSIUM 3.2 mmol/l (3.5-5.1); SGOT/AST 22 u/l (19-48); SODIUM 136 mmol/l (137-146); TOTAL PROTEIN 5.6 g/dL (6.3-8.2)
[2022-09-12 06:18] LABS: URINE BILIRUBIN - DIPSTICK NEGATIVE (NEGATIVE); URINE BLOOD DIPSTICK SMALL (NEGATIVE); URINE COLOR YELLOW; URINE GLUCOSE - DIPSTICK NEGATIVE (NEGATIVE); URINE KETONE NEGATIVE (NEGATIVE); URINE LEUK ESTERASE NEGATIVE (NEGATIVE); URINE PH 5.5 (4.5-8.0); URINE PROTEIN - DIPSTICK TRACE mg/dL (NEG-TRACE); URINE SPECIFIC GRAVITY 1.025; URINE UROBILINOGEN - DIPSTICK 0.2 E.U./dL (0.2)
[2022-09-12 06:26] LABS: URINE NITRITE - DIPSTICK NEGATIVE (Negative)
[2022-09-12 06:38] LABS: URINE WBC 0-2 WBC/hpf (0-5)
--- NOTE | 2022-09-12 07:11 | NUR ---
PT RESTINGIN LOWSEMI FOWLERS POSITION. A/O PT HEART RHYTHM ON TELE PACED. RESPIATIONS ON 2LNC PT CURRENTLY OFF PT TAKES O2 OFF. PT IV SITE NOTED FLUIDS INFUSING. PTDENIES ADDITIONAL NEEDS AT THE TIMEALL SAFETYPRECAUTIONS IN PLACE.
--- NOTE | 2022-09-12 12:22 | NUR ---
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 TO BE INSERTED AFTER LUNCH PT CURRENTLY EATING.
--- NOTE | 2022-09-12 13:36 | NUR ---
PT OUTPUT 100 CC OF URINE. ORDER FOR CHAIREZ CATH NOTED. PT EDUCATED NEED OF CHAIREZ CATH PT STATED UNDERSTANDING.INSERTION ON 16F CATH . PT TOLERATED WELL. URINE OUT PUT TO BE DOCUMETED. URINE DARK CHUY.
--- NOTE | 2022-09-12 15:41 | NUR ---
PT RESTING IN LOWFOWLERS POSITION PT TAKES OXYGEN ON AND OFF PT AWARE HAS INHALER IF NEEDED. FOR SOB. PT DENIES ADDITIONAL NEEDS AT THE TIME .
--- NOTE | 2022-09-12 21:29 | NUR ---
received bedside report at start of shift. pt alert, in bed with hob elevated. on 02 via nasal cannula. joiner cath draining dk patel urine. iv fluids infusing rt forearm. top side rails up. bed is locked and alarm in engaged. call light is in reach.
[2022-09-13] VITALS (12 sets, daily range): BP systolic 109–142; BP diastolic 49–78
--- NOTE | 2022-09-13 02:05 | NUR ---
pt continues to pull at joiner catheter, take 02 off, trying to climb over bedrails. unable to redirect. pt became agitated. zyprexa given IM as ordered for agitation.
--- NOTE | 2022-09-13 04:31 | NUR ---
PTS CHAIREZ DRAINED 300 CC CHUY COLORED INTAKE 1850 IV FLUIDS AND PO.
[2022-09-13 06:01] LABS: BASO% 0.1 % (0-3); HEMATOCRIT 38.6 % (39.0-50.0); HEMOGLOBIN 11.8 g/dl (14.0-18.0); IMMATURE GRANULOCYTES 0.3 % (0.0-5.0); LYMPH% 8.3 % (15-41); MEAN CORPUSCULAR HGB 30.9 pG CALC (26.0-32.0); MEAN CORPUSCULAR HGB CONC 30.6 g/dL CAL (32.0-36.0); MONO% 2.9 % (2-13); NEUT# 6.75 thou/uL (1.82-7.42); NEUT% 88.4 % (42-76); RED BLOOD COUNT 3.82 mill/uL (4.70-6.10); RED CELL DISTRI WIDTH 13.5 % (11.5-15.5)
[2022-09-13 06:41] LABS: ALBUMIN 2.6 g/dL (3.2-5.0); ALKALINE PHOSPHATASE 88 u/l (38-126); BUN 51 mg/dL (8-23); BUN/CREATININE RATIO 45 (12-20 (CALC)); CARBON DIOXIDE 16 mmol/l (22-30); CHLORIDE 111 mmol/l (95-108); CREATININE 1.1 mg/dL (0.7-1.3); GFR FOR AFR.AMER. > 60 ML/MIN (>=60 (CALC)); GFR OTHER RACES > 60 ML/MIN (>=60 (CALC)); SGOT/AST 24 u/l (19-48); SODIUM 137 mmol/l (137-146); TOTAL PROTEIN 5.4 g/dL (6.3-8.2)
[2022-09-13 06:43] LABS: ANION GAP 14 (6-22 (CALC)); MAGNESIUM 2.3 mg/dL (1.6-2.3); POTASSIUM 3.9 mmol/l (3.5-5.1)
--- NOTE | 2022-09-13 07:30 | NUR ---
RECIEVED BEDSIDE REPORT, WHITEBOARD UPDATED,PATIENT IN BED RESTING, IV INTACT , URINE IS DARK YELLOW, PATIENT SAFETY PRECAUTINS IN PLACE, NO S/S OF DISTRESS.
--- NOTE | 2022-09-13 07:45 | NUR ---
pt yelled out and told staff he wanted into the chair. pt very confused this am. declined in function as far as mentation. property underwriter helped get everything ready to get pt into chair. pt sat on opposite side of bed. after reorienting pt property underwriter got pt on other side of bed to place in chair. pt weight this am. pt doesnt really stand that much today. worse than yesterday. pt kept telling property underwriter he wasnt awake yet. property underwriter agreed but pt still insisted on getting into the chair. pt max assist to chair. pt in chair at this time with breakfast on table in front of him. pt was oriented to the tray. property underwriter cut up food for pt so he could eat. pt tv was turned on so he could watch it while he eats. pt used it as a phone to talk to someone by putting up to his ear. pt joiner still in place draining. pt tried to pull it out while standing up along with his iv. pt was told to leave the iv and joiner alone. pt hasnt touch it since. pt ate 75 percent of meal today after it getting cut up for him.
--- NOTE | 2022-09-13 12:00 | NUR ---
PATIENT IN CHAIR APPEARS SLEEPING, NO S/S OF DISTRESS, PATIENT MOVED TO BED. CATH DRAINING CHUY COLORED URINE, PATIENT SAFETY MEASURES IN PLACE.
--- NOTE | 2022-09-13 17:37 | NUR ---
PRIMARY NURSE NOTES PT CONTINUES TO SLEEP, REPORTS "HE'S BEEN ASLEEP ALL DAY". REQUESTS SECONDARY ASSESMENT OF PT/ ON EXAM PT IS SOMNOLENT BUT IS ROUSABLE WITH LIGHT PHYSICAL STIMULATION. VSS. PT SITTING UP HIGH FOWLERS, MAINTAINS AIRWAY INDEPENDENTLY. DR. BOWDEN MADE AWARE.ABG ORDERED. REPORTEDLY PT HAS BEEN SOMNOLENT SINCE RECEIVING ZYPREXA THE NIGHT BEFORE FOR AGITATION. SPOKE WITH PRIMARY NURSE Merly BERTRAND AND DORIAN MACE REGARDING CHANGES TO PLAN OF CARE, AND ASPIRATION PRECAUTIONS ARE IN PLACE WITH SUCTION AT BEDSIDE, PO INTAKE ON HOLD UNTIL PT BECOMES MORE ALERT.
--- NOTE | 2022-09-13 17:37 | NUR ---
patient is somnolent, house and floorworker distributor aware, floorworker distributor notified provider, vitals stable does rouse with sternal rub. patient safety precautions in place.
--- NOTE | 2022-09-13 20:03 | NUR ---
RECEIVED BEDSIDE REPORT AT START OF SHIFT. PT IS SLEEPING. OPENS EYES TO TOUCH. ON TELE PACED HR 60. CHAIREZ CATH PATENT DRAINING CHUY COLORED URINE. ON NASAL 02 AT 2 LITERS. TOP BED RAILS UP. BED IS LOCKED AND ALARMED. CALL LIGHT IN REACH.
--- NOTE | 2022-09-13 23:00 | NUR ---
PT TURNED AND REPOSITIONED IN HIGH FOWLERS TO PROMOTE CLEARING HIS THROAT CONGESTION. PT WAS ABLE TO COUGH UP SPUTUM AND CLEAR HIS AIRWAY/THROAT. AWAKE AT PRESENT. TOOK PO MEDS WITH SIPS OF WATER. 02 SAT 96% ON 2 LITERS VIA NC. BP 136/61-HR 80-RR 16
[2022-09-14] VITALS (9 sets, daily range): BP systolic 126–144; BP diastolic 55–78
[2022-09-14 05:04] LABS: IMMATURE GRANULOCYTES 0.5 % (0.0-5.0); LYMPH% 5.9 % (15-41); MEAN CORPUSCULAR HGB CONC 33.1 g/dL CAL (32.0-36.0); MONO% 2.2 % (2-13); NEUT# 5.76 thou/uL (1.82-7.42); NEUT% 91.4 % (42-76); RED BLOOD COUNT 3.1 mill/uL (4.70-6.10); RED CELL DISTRI WIDTH 13.5 % (11.5-15.5)
[2022-09-14 05:10] LABS: HEMOGLOBIN 9.6 g/dl (14.0-18.0); MEAN CELL VOLUME 93.5 fL CALC (80.0-100.0)
--- NOTE | 2022-09-14 05:24 | NUR ---
BED BATH GIVEN THIS AM. PROTECTIVE FOAM DSG CHANGED TO COCCYX/BUTTOCKS. WOUND ON LEFT BUTTOCK CLEANSED AND DRIED. CHAIREZ CATH DRAINED 400 CC CHUY COLRED URINE. IV FLUIDS KVO. IV MEDS TOTAL RECEIVED 300 CC. PT AWAKE THIS AM. TURNED AND REPOSITIONED. SIDE RAILS UP BED LOCKED AND ALARMED FOR SAFETY. ON TELE PACED RYTHM 65
[2022-09-14 05:41] LABS: ALBUMIN 2.6 g/dL (3.2-5.0); ALKALINE PHOSPHATASE 78 u/l (38-126); BILIRUBIN, TOTAL 1.2 mg/dL (0.2-1.3); BUN 53 mg/dL (8-23); BUN/CREATININE RATIO 41 (12-20 (CALC)); CHLORIDE 112 mmol/l (95-108); CREATININE 1.3 mg/dL (0.7-1.3); GFR FOR AFR.AMER. > 60 ML/MIN (>=60 (CALC)); GFR OTHER RACES 53 ML/MIN (>=60 (CALC)); MAGNESIUM 2.2 mg/dL (1.6-2.3); SGOT/AST 21 u/l (19-48); SODIUM 140 mmol/l (137-146); TOTAL PROTEIN 5.4 g/dL (6.3-8.2)
[2022-09-14 05:43] LABS: ANION GAP 11 (6-22 (CALC))
[2022-09-14 05:49] LABS: CARBON DIOXIDE 21 mmol/l (22-30)
--- NOTE | 2022-09-14 07:15 | NUR ---
REPORT RECEIVED FROM SANJIVRN
--- NOTE | 2022-09-14 08:40 | NUR ---
PT RESTING IN SEMI FOWLERS POSITION, OPENS EYES TO TOUCH HOWEVER FALLS BACK TO SLEEP QUICKLY;ASSESSMENT COMPLETED;RESPIRATIONS SHALLOW ON O2 @ 2L VIA NC,COARSE/CRACKLE LUNG SOUNDS NOTED;ABDOMEN SOFT ON PALPATION AND ACTIVE IN ALL 4 QUADRANTS;WEAK PEDAL PULSES;PRESSURE ULCER NOTED TO DANETTE BUTTOCKS WITH AQUACEL DRESSING IN PLACE;CHAIREZ CATHETER PATENT,DRAINING TO GRAVOTY WITH EASE;#20G TO RW INFUSING NS @ KVO, SITE APPEARS HEALTHY;TELE MONTITORING IN PLACE;ALL SAFETY PRECAUTIONS NOTED WITH BED IN THE LOWEST POSITION AND BED ALARM NOTED;CALL LIGHT IN REACH;FREQUENT ROUNDS MADE.
--- NOTE | 2022-09-14 09:09 | NUR ---
AT BEDSIDE DISCUSSING POC.
--- NOTE | 2022-09-14 10:10 | NUR ---
NICOTINE PATCH REMOVED FROM LEFT SHOULDER AND NEW ONE APPLIED TO RIGHT SIDE.
--- NOTE | 2022-09-14 12:40 | NUR ---
PT RESTING IN SEMI FOWLERS POSITION;PT REMAINS LETHARGIC BUT IS WAKING MORE SPONTANEOUSLY;PT DENIES ANY CURRENT PAIN OR NEEDS;RESPIRATIONS REMAIN SHALLOW ON O2 @ 2L VIA NC;CHAIREZ CATHETER DRAINING TO GRAVITY WITH EASE;IV SITE PATENT INFUSING NS @ KVO;TELE MONITORING IN PLACE;ALL SAFETY PRECAUTIONS NOTED WITH BED IN THE LOWEST POSITION AND BED ALARM ON FOR SAFETY;CALL LIGHT IN REACH;FREQUENT ROUNDS MADE.
--- NOTE | 2022-09-14 15:45 | NUR ---
PT APPEARS TO BE SLEEPING IN SEMI FOWLERS POSITION;RESPIRATIONS EVEN AND UNLABORED ON O2 @ 2L VIA NC;NO S/S OF DISTRESS NOTED;TELE MONITORING IN PLACE;IV SITE REMAINS PATENT;CHAIREZ CATHETER DRAINING WITH EASE;ALL SAFETY PRECAUTIONS REMAIN IN PLACE WITH BED IN THE LOWEST POSITION AND BED ALARM ON FOR SAFETY;CALL LIGHT IN REACH;FREQUENT ROUNDS MADE.
--- NOTE | 2022-09-14 20:10 | NUR ---
PT IN BED RESTING WITH EYES CLOSED. PT AWAKEN TO COMPLETED SHIFT ASSESSMENT. PT DENIES PAIN OR DISCOMFRT. A&OX2. BREATHING IS EVEN AND UNLABORED. NO S/S OF DISTRESS NOTED. CHAIREZ CATH IN PLACE DRAINING WELL, URINE IS CHUY. CALL LIGHT IN REACH AND BED IN LOWEST POSITION.
[2022-09-15] VITALS (9 sets, daily range): BP systolic 106–146; BP diastolic 36–75
--- NOTE | 2022-09-15 00:50 | NUR ---
PT IN BED RESTING WITH EYES CLOSED BREATHING EVEN AND UNLABORED. NO S/S OF DISTRESS NOTED CALL LIGHT IN REACH AND BED IN LOWEST POSITION.
--- NOTE | 2022-09-15 04:35 | NUR ---
pt resting in bed awake, watching tv. pt denies pain or discomfort. no s/s of distress noted. breathing even adn unlabored. call light in reanch and bed in lowest position.
--- NOTE | 2022-09-15 07:38 | NUR ---
REPORT GIVEN BY NERY ROJAS. PATIENT RESTING IN BED WITH EYES CLOSED. RESP EVEN AND UNLABORED, O2 VIA NC. NO S/S OF DISTRESS NOTED. FALL AND SAFTEY PRECAUTIONS IN PLACE. CHAIREZ DRAINING TO GRAVITY, CLEAR YELLOW URINE. MEPILEX IN PLACE ON BUTTOCKS. IV INFUSINGS KVO FLUIDS. PLAN OF CARE DISCUSSED. PATIENT INFORMED TO CALL WITH ANY QUESTIONS OR CONCERNS.
[2022-09-15 10:45] LABS: BASO% 0.2 % (0-3); HEMATOCRIT 28.4 % (39.0-50.0); HEMOGLOBIN 9.5 g/dl (14.0-18.0); IMMATURE GRANULOCYTES 1.4 % (0.0-5.0); LYMPH% 4.9 % (15-41); MEAN CELL VOLUME 92.8 fL CALC (80.0-100.0); MEAN CORPUSCULAR HGB CONC 33.5 g/dL CAL (32.0-36.0); MONO% 2.1 % (2-13); NEUT# 5.8 thou/uL (1.82-7.42); NEUT% 91.4 % (42-76); RED BLOOD COUNT 3.06 mill/uL (4.70-6.10); RED CELL DISTRI WIDTH 13.5 % (11.5-15.5)
--- NOTE | 2022-09-15 12:10 | NUR ---
PATIENT RESTING IN BED WATCHING TV. RESP EVEN AND UNLABORED. NO S/S OF DISTRESS NOTED. FALL AND SAFTEY PRECATUIONS IN PLACE.
--- NOTE | 2022-09-15 17:09 | NUR ---
PATIENT SITTING IN BED EATING DINNER AND WATCHING TV. RESP EVEN AND UNLABORED. NO S/S OF DISTRESS NOTED. FALL AND SAFTEY PRECAUTIONS IN PLACE.
--- NOTE | 2022-09-15 22:45 | NUR ---
PT IN BED RESTING WITH EYES CLOSED. PT AWAKEB TO COMPLETED SHIFT ASSESMENT. NO S/S OF DISTESS NOTED. BREATHING IS EVEN AND UNLABORED. LUNG SOUND ARE RONCHI. EDEMA NOTED IN THE BUE. A PLACE A PILLOW UNDER ARMS. CHAIREZ IN PLACE DRAING CHUY CLEAR URINE. CALL LIGHT IN REACH AND BED IN LOWEST POSITION.
[2022-09-16] VITALS (7 sets, daily range): BP systolic 119–148; BP diastolic 56–71
--- NOTE | 2022-09-16 | NUR ---
PT RESTING IN BED WITH EYES CLOSED. BREATHING EVENA AND UNLABORED. NO S/S OF DISTRESS NOTED. CALL LIGHT IN REACH ANAD BED IN THE LOWEST POSITION.
--- NOTE | 2022-09-16 04:00 | NUR ---
PT IN BED RESTING WITH EYES CLOSED. BREATHING EVEN AND UNLABORED. NO S/S OF DISTRESS NOTED. CALL LIGHT IN REACH AND BED IN LOWEST POSITION.
[2022-09-16 05:08] LABS: BASO% 0.2 % (0-3); HEMATOCRIT 27.3 % (39.0-50.0); HEMOGLOBIN 8.9 g/dl (14.0-18.0); IMMATURE GRANULOCYTES 1.1 % (0.0-5.0); LYMPH% 4.6 % (15-41); MEAN CELL VOLUME 94.1 fL CALC (80.0-100.0); MEAN CORPUSCULAR HGB 30.7 pG CALC (26.0-32.0); MEAN CORPUSCULAR HGB CONC 32.6 g/dL CAL (32.0-36.0); MONO% 4.2 % (2-13); NEUT# 5.93 thou/uL (1.82-7.42); NEUT% 89.9 % (42-76); RED BLOOD COUNT 2.9 mill/uL (4.70-6.10); RED CELL DISTRI WIDTH 13.7 % (11.5-15.5)
[2022-09-16 05:28] LABS: ANION GAP 12 (6-22 (CALC)); BUN 59 mg/dL (8-23); BUN/CREATININE RATIO 50 (12-20 (CALC)); CARBON DIOXIDE 20 mmol/l (22-30); CHLORIDE 116 mmol/l (95-108); CREATININE 1.2 mg/dL (0.7-1.3); GFR FOR AFR.AMER. > 60 ML/MIN (>=60 (CALC)); GFR OTHER RACES 58 ML/MIN (>=60 (CALC)); MAGNESIUM 2.3 mg/dL (1.6-2.3); SODIUM 144 mmol/l (137-146)
--- NOTE | 2022-09-16 07:10 | NUR ---
RECIEVED BEDSIDE RPORT, PATIENT APPEARS TO BE SLEEPING, VITALS STABLE, URINE IS YELLOW, CLEAR, OPENS EYES WHEN SPOKEN TO BUT DRIFTS BACK OFF TO SLLEP. NO S/S OF DISTRESS, PATIENT SAFETY MEASURES IN PLACE.
--- NOTE | 2022-09-16 17:12 | NUR ---
PATIENT IN BED, RESPONSIVE TO VOICE, APPEARS VERY WEAK, ABLE TO TAKE PILLS THIS AM, CATH DRAINING CLEAR CHUY URINE,NO S/S OF DISTRESS, PATIENT SAFETY PRECAUTIONS IN PLACE.
--- NOTE | 2022-09-16 22:37 | NUR ---
RECEIVED BEDSIDE REPORT AT START OF SHIFT. PT IN BED, HOB UP, ON AT 2 LITERS VIA NC. PT RESPONDS WHEN SPOKEN TO. TROY FLUIDS WELL WITH MEDICATIONS. CHAIREZ CATH PATENET. IV INFUSING KVO. BED RAILS UP. BED ALARM ON. CALL LIGHT IN REACH
--- NOTE | 2022-09-16 23:30 | NUR ---
CALL FROM ED REGARDING PATIENT IN VTACH, EKG ORDER PLACED. FREIGHT CAR REPAIRER CALLED.
[2022-09-17] VITALS (9 sets, daily range): BP systolic 119–144; BP diastolic 51–66
--- NOTE | 2022-09-17 00:07 | NUR ---
pt was given miralx and ducosate for constipation. results pending.
--- NOTE | 2022-09-17 00:27 | NUR ---
unit was notified by tele monitor in ER at 2326 that pt was in vtach. hr also 156 sustained briefly. rapid reposnse was called. pt awake/drowsy. vs 148/61-156 hr- 18- 96% on 2 liters. ekg done. hr back to paced. biventricular. instrument maintenance supervisor present.
[2022-09-17 06:07] LABS: HEMATOCRIT 27.7 % (39.0-50.0); HEMOGLOBIN 8.9 g/dl (14.0-18.0); IMMATURE GRANULOCYTES 1.5 % (0.0-5.0); LYMPH% 5.3 % (15-41); MEAN CELL VOLUME 96.2 fL CALC (80.0-100.0); MEAN CORPUSCULAR HGB 30.9 pG CALC (26.0-32.0); MEAN CORPUSCULAR HGB CONC 32.1 g/dL CAL (32.0-36.0); MONO% 5.5 % (2-13); NEUT# 8.06 thou/uL (1.82-7.42); NEUT% 87.7 % (42-76); RED BLOOD COUNT 2.88 mill/uL (4.70-6.10); RED CELL DISTRI WIDTH 13.9 % (11.5-15.5)
--- NOTE | 2022-09-17 06:16 | NUR ---
pt was given ducosate, miralax and MOM this shift. has not had a bm this shift. fluids encouraged.
[2022-09-17 06:21] LABS: ALBUMIN 2.4 g/dL (3.2-5.0); ALKALINE PHOSPHATASE 73 u/l (38-126); ANION GAP 11 (6-22 (CALC)); BUN 64 mg/dL (8-23); BUN/CREATININE RATIO 50 (12-20 (CALC)); CARBON DIOXIDE 22 mmol/l (22-30); CHLORIDE 118 mmol/l (95-108); CREATININE 1.3 mg/dL (0.7-1.3); GFR FOR AFR.AMER. > 60 ML/MIN (>=60 (CALC)); GFR OTHER RACES 53 ML/MIN (>=60 (CALC)); MAGNESIUM 2.2 mg/dL (1.6-2.3); SGOT/AST 26 u/l (19-48); SODIUM 147 mmol/l (137-146)
--- NOTE | 2022-09-17 07:00 | NUR ---
RECIEVED BEDSIDE REPORT, WHITE BOARD UPDATED, PATIENT RESTING, NO S/S OF DISTRESS, PATIENT SAFETY MEASURES IN PLACE.
--- NOTE | 2022-09-17 20:00 | NUR ---
RECEIVED REPORT FROM NURSE CAMILO, PATIENT RESTING IN BED, ALERT TO NAME AND BIRTHDAY ONLY, PATIENT IS DROWSY, ONGOING IV NS @ 10CC/HR INFUSING WELL ON RFA G 20, HOOKED ON TELEMETRY PACE 84, PATIENT APPEARS PALE, SCATTERED BRUISING NOTEDM COUGH NOTED NON PRODUCTIVE, PATIENT CHAIREZ DRAINING CHUY COLORED URINE, BED ALARM IN PLACE.
[2022-09-18] VITALS (7 sets, daily range): BP systolic 123–141; BP diastolic 46–68
--- NOTE | 2022-09-18 | NUR ---
DUE AZITHROMYCIN GIVEN, PATIENT REMAINS ON O2 @ 2LPM VIA NC, NOT IN DISTRESS, CALL LIGHT IN REACH, BED ALARM IN PLACE.
--- NOTE | 2022-09-18 04:23 | NUR ---
PATIENT MORE AWAKE AT BTHIS TIME. PATIENT USED THE CALL LIGHT AND ASKED TO TURN ON THE TELEVISION AND TO PUT IN ON THE NEWS CHANNEL,BED ALAMR IN PLACE3.
--- NOTE | 2022-09-18 06:44 | NUR ---
PT ON 2L NC SAT93%
--- NOTE | 2022-09-18 07:01 | NUR ---
RECIEVED BEDSIDE REPORT, PATIENT RESTING, NO S/S OF PAIN OR DISTRESS, PATIENT SAFETY MEASURES IN PLACE.
--- NOTE | 2022-09-18 12:00 | NUR ---
PATIENT ATE 25% OF HIS LUNCH, REPOSITIONED, PILLOWS ADJUSTED, PATIENT FRIEND UPDATED WAS SISTER FROM [place], SISTER STATED IS ABLE TO VISIT HER BROTHER. NO S/S OF DISTRESS, PATIENT SAFETY MEASURES IN PLACE.
--- NOTE | 2022-09-18 20:00 | NUR ---
RECEIVED REPORT FROM Marie CAMIOL, PATIENT SITTING IN BED EATING DINNER, ATE 25% ON HIS FOOD, PATIENT ON O2 @ 1LPM VIA NC, COUGHING NOTED NON PRODUCTIVE, HOOKED ON TELEMETRY, ACTIVE BOWEL SOUNDS, CHAIREZ CATHTETER DRAINING CHUY COLORED URINE, CALL LIGHT IN REACH.
[2022-09-19] VITALS (14 sets, daily range): BP systolic 104–149; BP diastolic 47–66
--- NOTE | 2022-09-19 | NUR ---
PATIENT NOT IN DISTRESS BREATHING UNLABORED N DISCOMFORTS NOTED CALL LIGHT IN REACH, BED ALARM IN PLACE.
--- NOTE | 2022-09-19 04:33 | NUR ---
PATIENT AWAKE AT THIS TIME, DROWSY, STATED STILL SLEEPY, REMAINS ON O2 NOT IN DISTRESS CALL LIGHT IN REACH.
[2022-09-19 06:00] LABS: BASO% 0.1 % (0-3); HEMATOCRIT 23.9 % (39.0-50.0); HEMOGLOBIN 7.5 g/dl (14.0-18.0); IMMATURE GRANULOCYTES 2.3 % (0.0-5.0); LYMPH% 6.3 % (15-41); MEAN CELL VOLUME 97.6 fL CALC (80.0-100.0); MEAN CORPUSCULAR HGB 30.6 pG CALC (26.0-32.0); MEAN CORPUSCULAR HGB CONC 31.4 g/dL CAL (32.0-36.0); MONO% 5.1 % (2-13); NEUT# 7.57 thou/uL (1.82-7.42); NEUT% 86.2 % (42-76); RED BLOOD COUNT 2.45 mill/uL (4.70-6.10)
[2022-09-19 06:21] LABS: ALBUMIN 2.5 g/dL (3.2-5.0); ALKALINE PHOSPHATASE 71 u/l (38-126); BILIRUBIN, TOTAL 1.3 mg/dL (0.2-1.3); CARBON DIOXIDE 23 mmol/l (22-30); CHLORIDE 119 mmol/l (95-108); CREATININE 1.3 mg/dL (0.7-1.3); GFR FOR AFR.AMER. > 60 ML/MIN (>=60 (CALC)); GFR OTHER RACES 53 ML/MIN (>=60 (CALC)); MAGNESIUM 2.6 mg/dL (1.6-2.3); SODIUM 145 mmol/l (137-146)
[2022-09-19 06:22] LABS: SGOT/AST 32 u/l (19-48)
[2022-09-19 06:28] LABS: ANION GAP 8 (6-22 (CALC)); BUN 83 mg/dL (8-23); BUN/CREATININE RATIO 64 (12-20 (CALC)); POTASSIUM 5.1 mmol/l (3.5-5.1)
--- NOTE | 2022-09-19 06:33 | NUR ---
RECEIVED A CRITICAN SURESH FROM LAB, NOTIFIED BITUMINOUS DISTRIBUTOR OPERATOR DR. CHATMAN, NO NEW ORDERS MADE AT THIS TIME.
--- NOTE | 2022-09-19 07:15 | NUR ---
RECIEVED BEDSIDE REPORT, NO S/ S OF DISTRESS, PATIENT IN BED, APPEARS TO BE SLEEPING, IV FLUIDS RUNNING, IV INTACT, WHITEBOARD UPDATED, PATIENT SAFETY MEASURES IN PLACE.
--- NOTE | 2022-09-19 12:00 | NUR ---
PATIENT IN BED, MORE ALERT THAN THE PAST FEW DAYS, NO S/S OF DISTRESS, HGB IS 7.5, 1 UNIT BLAOOD ORDERED, PATIENT SHOULD DISCHARGE TO REHAB TOMORROW PENDING BOWEL MOVEMENT, PATIENT SAFETY MEASURES IN PLACE.
--- NOTE | 2022-09-19 16:23 | NUR ---
PATIENT RECIEVED 1 UNIT PRBC, TOLERATED WELL, LUNGS CLEAR, NO REACTION SIGNS NOTED, VITALS STABLE THROUGHOUT TRANSFUSION. PATIENT SAFTEY PRECAUTIONS IN PLACE.
--- NOTE | 2022-09-19 20:38 | NUR ---
BEDSIDE REPORT RECEIVED FORM OFF GOING NURSE. PATIENT ASLEEP IN BED. RESPIRATIONS EVEN AND UNLABORED ON OXYGEN. NO SIGNS OF DISTRESS NOTED. CHAIREZ CATHETER DRAINING CHUY URINE. CALL LIGHT WITHIN REACH.
--- NOTE | 2022-09-20 00:42 | NUR ---
PATIENT ASLEEP IN BED BUT EASILY AROUSED TO SPEECH. PO FLUIDS OFFERED TO PATIENT. DENIES PAIN OR DISCOMFORT. RESPIRATIONS EVEN AND UNLABORED. CALL LIGHT WITHIN REACH.
[2022-09-20 03:44] VITALS: BP 151/74
[2022-09-20 04:47] VITALS: BP 151/74
--- NOTE | 2022-09-20 06:47 | NUR ---
PATIENT DECLINED TO HAVE SOAP SUDS ENEMA X3 ATTEMPTS. PATIENT STATES "NO I DON'T WANT A ENEMA". EDUCATION PROVIDED BUT PATIENT CONTINUES TO DECLINE.
[2022-09-20 07:34] LABS: HEMATOCRIT 27.5 % (39.0-50.0); IMMATURE GRANULOCYTES 3.2 % (0.0-5.0); MEAN CELL VOLUME 94.8 fL CALC (80.0-100.0); MEAN CORPUSCULAR HGB CONC 32.7 g/dL CAL (32.0-36.0); RED CELL DISTRI WIDTH 14.3 % (11.5-15.5)
[2022-09-20 07:55] LABS: ALBUMIN 2.4 g/dL (3.2-5.0); ALKALINE PHOSPHATASE 78 u/l (38-126); ANION GAP 11 (6-22 (CALC)); BUN 76 mg/dL (8-23); BUN/CREATININE RATIO 58 (12-20 (CALC)); CARBON DIOXIDE 21 mmol/l (22-30); CHLORIDE 120 mmol/l (95-108); CREATININE 1.3 mg/dL (0.7-1.3); GFR FOR AFR.AMER. > 60 ML/MIN (>=60 (CALC)); GFR OTHER RACES 53 ML/MIN (>=60 (CALC)); MAGNESIUM 2.5 mg/dL (1.6-2.3); POTASSIUM 5.5 mmol/l (3.5-5.1); SGOT/AST 23 u/l (19-48); SODIUM 146 mmol/l (137-146); TOTAL PROTEIN 4.9 g/dL (6.3-8.2)
--- NOTE | 2022-09-20 08:00 | NUR ---
PT IN BED RESTING WITH EYE CLOSED, AWAKENED TO VERBAL STIMULI. PT IS OREINTED TO SELF AND PLACE ONLY; PT HAS NO C/O PAIN AT THIS TIME. O2 AT 1 LITER ON VIA NC. PT HAS TELE ON WITH LEADS ATTACHED. PT LUNGS COARSE THROUGHOUT. ABD SOFT, BS ACTIVE THROUGHOUT. IV SITE TO RFA CLEAN AND INTACT WITH NS AT KVO INFUSING. CHAIREZ DRAINING CHUY COLORED URINE. PT HAS CALL LIGHT WITHIN REACH AND ALL SAFETY MEASURES IN PLACE AT THIS TIME.
[2022-09-20 08:03] LABS: MANUAL DIFFERENTIAL YES; PLATELET COUNT 58 thou/uL (130-400); PLATELET ESTIMATE MOD DECREASE
[2022-09-20 08:04] LABS: ACANTHOCYTES MODERATE; POIKILOCYTOSIS MODERATE
[2022-09-20] MEDS ORDERED: PROTONIX40 M2 PO (11:00)
[2022-09-20 11:28] VITALS: BP 150/63
[2022-09-20] MEDS ORDERED: MEDDOSEPAK PO (11:58)
[2022-09-20] MEDS ORDERED: IPRATROPIU0.5 MG/3 M NEB (11:58)
--- NOTE | 2022-09-20 12:00 | NUR ---
PT IN BED WITH HOB UP, COLLEGE OR UNIVERSITY FACULTY MEMBER IN RMM ASSISTING PT WITH LUNCH. PT HAS NO C/O PAIN AT THIS TIME. PT HAS NO CHANGE IN STATUS AT THIS TIME. CALL LIGHT WITHIN REACH AND ALL SAFETY MEASURES IN PLACE AT THIS TIME.
[2022-09-20 13:49] VITALS: BP 136/62
--- NOTE | 2022-09-20 13:58 | NUR ---
Discharge instructions given. Patient verbalizes understanding of same. Discharged in stable condition via Wheelchair to Home with spouse. All belongings sent with pt.
--- NOTE | 2022-09-20 14:17 | NUR ---
Discharge instructions given. Patient verbalizes understanding of same. Discharged in stable condition via Wheelchair to [facility] with *Other. All belongings sent with pt.
== END 2022-09-20 14:24 | DRG 190 ==
LOC: ED 22:21 → ED-I 23:00 → ED 09-10 00:55 → MS2 09-10 00:56
PROVIDERS: Emergency Medicine; Internal Medicine; Nurse Practitioner Family; ADMIT Internal Medicine; ATTEND Internal Medicine
PROC: 0T9B70Z Drainage of Bladder with Drainage Device, Via Natural or Artificial Opening (ICD-10-PCS; principal; 2022-09-12)
PROC: 30233N1 Transfusion of Nonautologous Red Blood Cells into Peripheral Vein, Percutaneous Approach (ICD-10-PCS; 2022-09-19)
DX: J44.1 Chronic obstructive pulmonary disease with (acute) exacerbation (principal); J18.9 Pneumonia, unspecified organism; J96.21 Acute and chronic respiratory failure with hypoxia; F03.911 Unspecified dementia, unspecified severity, with agitation; I47.20 Ventricular tachycardia, unspecified; J44.0 Chronic obstructive pulmonary disease with (acute) lower respiratory infection; E87.6 Hypokalemia; E83.42 Hypomagnesemia; E86.0 Dehydration; I10 Essential (primary) hypertension; D64.9 Anemia, unspecified; D69.6 Thrombocytopenia, unspecified; I25.10 Atherosclerotic heart disease of native coronary artery without angina pectoris; R33.9 Retention of urine, unspecified; E78.5 Hyperlipidemia, unspecified; R62.7 Adult failure to thrive; F17.210 Nicotine dependence, cigarettes, uncomplicated; I25.2 Old myocardial infarction; Z99.81 Dependence on supplemental oxygen; Z95.5 Presence of coronary angioplasty implant and graft; Z95.0 Presence of cardiac pacemaker; Z91.81 History of falling; Z68.25 Body mass index [BMI] 25.0-25.9, adult; Z60.2 Problems related to living alone
CPT/HCPCS: J1650; J3475; P9016; S0164; S0166

== ENCOUNTER 2022-09-24 14:58 | Inpatient (IN) | payer MEDICARE ==
[2022-09-24] VITALS (14 sets, daily range): BP systolic 103–130; BP diastolic 44–63
[~2022-09-24] VITALS: Ht 175.3 cm; Wt 72.9 kg
[~2022-09-24 14:58] MED LIST changes: +IPRATROPIU0.5 MG/3 M NEB; +MEDDOSEPAK PO; +PROTONIX40 M2 PO
[2022-09-24 15:34] LABS: BASO% 0.1 % (0-3); EOS% 0.2 % (0-8); HEMATOCRIT 25.8 % (39.0-50.0); HEMOGLOBIN 8.2 g/dl (14.0-18.0); IMMATURE GRANULOCYTES 0.8 % (0.0-5.0); LYMPH% 3.8 % (15-41); MEAN CELL VOLUME 95.9 fL CALC (80.0-100.0); MEAN CORPUSCULAR HGB 30.5 pG CALC (26.0-32.0); MEAN CORPUSCULAR HGB CONC 31.8 g/dL CAL (32.0-36.0); MONO% 4.1 % (2-13); NEUT# 11.62 thou/uL (1.82-7.42); RED BLOOD COUNT 2.69 mill/uL (4.70-6.10); RED CELL DISTRI WIDTH 13.5 % (11.5-15.5)
[2022-09-24 15:50] LABS: ALBUMIN 2.4 g/dL (3.2-5.0); ALKALINE PHOSPHATASE 81 u/l (38-126); ANION GAP 10 (6-22 (CALC)); BUN 62 mg/dL (8-23); BUN/CREATININE RATIO 49 (12-20 (CALC)); CARBON DIOXIDE 23 mmol/l (22-30); CHLORIDE 118 mmol/l (95-108); CREATININE 1.3 mg/dL (0.7-1.3); GFR FOR AFR.AMER. > 60 ML/MIN (>=60 (CALC)); GFR OTHER RACES 53 ML/MIN (>=60 (CALC)); SGOT/AST 22 u/l (19-48); SODIUM 145 mmol/l (137-146); TOTAL PROTEIN 5.2 g/dL (6.3-8.2)
[2022-09-24 16:00] LABS: POTASSIUM 6.2 mmol/l (3.5-5.1)
[2022-09-24 16:08] LABS: URINE BILIRUBIN - DIPSTICK NEGATIVE (NEGATIVE); URINE BLOOD DIPSTICK MODERATE (NEGATIVE); URINE COLOR YELLOW; URINE GLUCOSE - DIPSTICK NEGATIVE (NEGATIVE); URINE KETONE NEGATIVE (NEGATIVE); URINE LEUK ESTERASE NEGATIVE (NEGATIVE); URINE PH 5.5 (4.5-8.0); URINE PROTEIN - DIPSTICK NEGATIVE (NEG-TRACE); URINE SPECIFIC GRAVITY 1.025; URINE UROBILINOGEN - DIPSTICK 0.2 E.U./dL (0.2)
[2022-09-24 16:12] LABS: URINE NITRITE - DIPSTICK NEGATIVE (Negative)
[2022-09-24 16:17] LABS: URINE CALCIUM OXALATE CRYSTALS FEW lpf; URINE SQUAMOUS EPITHELIAL CELL FEW EPI/hpf (0-FEW)
[2022-09-25] VITALS (11 sets, daily range): BP systolic 101–152; BP diastolic 40–54
[2022-09-25 06:02] LABS: HEMATOCRIT 27.7 % (39.0-50.0); HEMOGLOBIN 8.7 g/dl (14.0-18.0); MEAN CELL VOLUME 96.9 fL CALC (80.0-100.0); MEAN CORPUSCULAR HGB 30.4 pG CALC (26.0-32.0); MEAN CORPUSCULAR HGB CONC 31.4 g/dL CAL (32.0-36.0); RED BLOOD COUNT 2.86 mill/uL (4.70-6.10); RED CELL DISTRI WIDTH 13.6 % (11.5-15.5)
[2022-09-25 06:19] LABS: ALBUMIN 2.6 g/dL (3.2-5.0); CREATININE 1.4 mg/dL (0.7-1.3); MAGNESIUM 2.3 mg/dL (1.6-2.3); TOTAL PROTEIN 5.7 g/dL (6.3-8.2)
[2022-09-25 06:21] LABS: POTASSIUM 5.9 mmol/l (3.5-5.1)
[2022-09-26] VITALS (8 sets, daily range): BP systolic 117–134; BP diastolic 37–71
[2022-09-26 05:33] LABS: BASO% 0.1 % (0-3); HEMATOCRIT 27.7 % (39.0-50.0); HEMOGLOBIN 8.7 g/dl (14.0-18.0); IMMATURE GRANULOCYTES 0.5 % (0.0-5.0); LYMPH% 3.1 % (15-41); MEAN CELL VOLUME 97.5 fL CALC (80.0-100.0); MEAN CORPUSCULAR HGB 30.6 pG CALC (26.0-32.0); MEAN CORPUSCULAR HGB CONC 31.4 g/dL CAL (32.0-36.0); MONO% 3.5 % (2-13); NEUT# 13.93 thou/uL (1.82-7.42); NEUT% 92.8 % (42-76); RED BLOOD COUNT 2.84 mill/uL (4.70-6.10); RED CELL DISTRI WIDTH 13.7 % (11.5-15.5)
[2022-09-26 05:54] LABS: ALBUMIN 2.6 g/dL (3.2-5.0); BILIRUBIN, TOTAL 2.5 mg/dL (0.2-1.3); CREATININE 1.4 mg/dL (0.7-1.3); TOTAL PROTEIN 5.4 g/dL (6.3-8.2)
[2022-09-26 05:56] LABS: POTASSIUM 5.7 mmol/l (3.5-5.1)
[2022-09-27] VITALS (7 sets, daily range): BP systolic 124–151; BP diastolic 45–69
[2022-09-27 05:10] LABS: BASO% 0.1 % (0-3); EOS% 0.1 % (0-8); HEMATOCRIT 25.8 % (39.0-50.0); HEMOGLOBIN 8.2 g/dl (14.0-18.0); IMMATURE GRANULOCYTES 0.6 % (0.0-5.0); LYMPH% 4.4 % (15-41); MEAN CELL VOLUME 97.7 fL CALC (80.0-100.0); MEAN CORPUSCULAR HGB 31.1 pG CALC (26.0-32.0); MEAN CORPUSCULAR HGB CONC 31.8 g/dL CAL (32.0-36.0); MONO% 3.4 % (2-13); NEUT# 10.86 thou/uL (1.82-7.42); NEUT% 91.4 % (42-76); RED BLOOD COUNT 2.64 mill/uL (4.70-6.10); RED CELL DISTRI WIDTH 13.9 % (11.5-15.5)
[2022-09-27 05:30] LABS: ALBUMIN 2.5 g/dL (3.2-5.0); BILIRUBIN, TOTAL 2.5 mg/dL (0.2-1.3); CREATININE 1.6 mg/dL (0.7-1.3); TOTAL PROTEIN 5.4 g/dL (6.3-8.2)
[2022-09-27 05:33] LABS: POTASSIUM 5.1 mmol/l (3.5-5.1)
[2022-09-28 03:58] VITALS: BP 113/44
[2022-09-28 07:53] VITALS: BP 123/61
[2022-09-28] MEDS ORDERED: MAPAP325 MG PO (10:07)
[2022-09-28] MEDS ORDERED: TRANSDERM-1 MG/3 DAY TD (10:08)
[2022-09-28] MEDS ORDERED: LORAZEPAM0.5 MG PO (10:08)
[2022-09-28 12:04] VITALS: BP 117/63
== END 2022-09-28 14:29 | disposition hospice, inpatient (51) | DRG 641 ==
LOC: ED 14:58 → ED-I 16:34 → ED 17:47 → MS2 18:49
PROVIDERS: Family Medicine; Nurse Practitioner Family; ADMIT Internal Medicine; ATTEND Internal Medicine
DX: E87.5 Hyperkalemia (principal); J96.11 Chronic respiratory failure with hypoxia; I50.22 Chronic systolic (congestive) heart failure; F03.C0 Unspecified dementia, severe, without behavioral disturbance, psychotic disturbance, mood disturbance, and anxiety; J44.9 Chronic obstructive pulmonary disease, unspecified; I25.10 Atherosclerotic heart disease of native coronary artery without angina pectoris; R62.7 Adult failure to thrive; E78.5 Hyperlipidemia, unspecified; I25.2 Old myocardial infarction; Z95.0 Presence of cardiac pacemaker; Z99.81 Dependence on supplemental oxygen; Z87.891 Personal history of nicotine dependence; Z95.5 Presence of coronary angioplasty implant and graft; Z51.5 Encounter for palliative care; Z66 Do not resuscitate
CPT/HCPCS: S0164